=== PATIENT | female | born 1960 | race Caucasian/White ===

== ENCOUNTER 2016-12-31 22:17 | Inpatient (IN) | payer SELFPAY ==
--- NOTE | 2016-12-31 22:33 | DR.GENAD ---
HPI - HPI Comment HPI Comment: SYMTOMS PERSISTENT AND GETTING WORSE. NOT HOLDING DOWN FLUID. NO FEVER. PATIENT DRINK ON A DAILY BASIS. HAVE BEING DRINKING TODAY. HISTORY PANCREATITIS. - Complaint/Symptoms Chief Complaint Doctors Comments: ABDOMINAL PAIN, NAUSEA AND VOMITING THAT STARTED SEVERAL HOURS AGO IN THE AFTERNOON. - Nurses notes reviewed Nurses Notes Review: Yes - Source History Provided: Patient - Mode of Arrival Mode of Arrival: Ambulatory - Timing Came on: Suddenly - Duration Duration: Constant Duration: Hours - Severity Severity: Moderate ROS - Review of Systems Constitutional: Weakness, Fatigue, Loss of Appetite. negative: Chills, Fever Eyes: No Symptoms Reported. negative: Eye Pain, Discharge ENTM: No Symptoms Reported Respiratoy: No Symptoms Reported, Non-Productive Cough, Short of Breath. negative: Productive Cough, Wheezing, Hemoptysis Cardiovascular: No Symptoms Reported Gastrointestinal/Abdominal: Abdominal Pain, Nausea, Vomiting Genitourinary: No Symptoms Reported. negative: Dysuria, Frequency, Hematuria Neurological: Headache, Weakness, Dizziness Musculoskeletal: Muscle Pain Integumentary: No Symptoms Reported, Dryness. negative: Juandice Hematologic/Lymphatic: Easy Bleeding, Easy Bruising Endocrine: No Symptoms Reported All Other Systems: Reviewed and Negative PE - Vital Signs Vitals: Temperature 98.6 F Pulse Rate [Brachial] 103 Pulse Rate 106 Respiratory Rate 18 Blood Pressure [Right Arm] 201/105 Blood Pressure 201/106 O2 Sat by Pulse Oximetry 98 - General Limitations: No Limitations General Appearance: Alert - Head Head Exam: Normal Inspection - Eyes Eye exam: Normal Appearance, PERRL, EOMI. negative: Scleral Icterus, Conjunctival Injection - ENT ENT Exam: Normal External Ear Exam External Ear Exam: Normal External Inspection TM/Canal Exam: Bilateral Normal Nose Exam: Normal Nose Exam Mouth Exam: Normal Inspection Throat Exam: Normal Inspection - Neck Neck Exam: Normal Inspection, Trachea Midline - Chest Chest Inspection: Symmetric Chest Wall Rise - Respiratory Respiratory Exam: Normal Lung Sounds Bilat Respiratory Exam: Bilateral Clear to Auscultation - Cardiovascular Cardiovascular Exam: Regular Rate, Normal Rhythm, Normal Heart Sounds - Abdominal Exam Abdominal Exam: Normal Bowel Sounds, Soft, Tenderness Abdominal Tenderness: Diffuse, Moderate - Extremities Extremities Exam: Normal Inspection - Back Back Exam: Normal Inspection - Neurologic Neurological Exam: Alert, Oriented X3 - Psychiatric Psychiatric Exam: Anxious - Skin Skin Exam: Dry MDM - Additional Information Additional Information Obtained From: Family - Differential Diagnosis Differential Diagnosis: ABDOMINAL PAIN, GASTRITIS, PANCREATITIS, BOWEL OBSTRUCTION Course - Treatment Treatment: SEE ORDERS - Consultation Consultation Comments: DISCUSS PATIENT WITH DR. COVARRUBIAS. HE WILL ADMIT PATIENT. - Education/Counseling Education/Counseling: Patient, Education Educated On: Diagnosis, Needs for Follow Up ROR - Labs Reviewed Laboratory Results Reviewed?: Yes Result Diagrams: 12/31/16 22:52 12/31/16 22:52 Laboratory: WBC 7.9 X10^3/uL (3.6-10.0) 12/31/16 22:52 RBC 3.77 X10^6/uL (3.5-5.4) 12/31/16 22:52 Hgb 13.3 g/dL (12.0-16.0) 12/31/16 22:52 Hct 36.5 % (36.0-47.0) 12/31/16 22:52 MCV 97.0 fL (80.0-100.0) 12/31/16 22:52 MCH 35.3 pg (27.0-34.0) H 12/31/16 22:52 MCHC 36.4 g/dL (33.0-35.0) H 12/31/16 22:52 RDW 12.9 % (11.6-16.5) 12/31/16 22:52 Plt Count 401 X10^3/uL (150.0-450.0) 12/31/16 22:52 MPV 7.2 fL (7.4-11.0) L 12/31/16 22:52 Neut % 73.4 % (42.0-75.0) 12/31/16 22:52 Lymph % 17.3 % (21.0-51.0) L 12/31/16 22:52 [place] % 6.5 % (0.0-13.0) 12/31/16 22:52 Eos % 1.4 % (0.9-2.9) 12/31/16 22:52 Baso % 1.4 % (0.2-1.0) H 12/31/16 22:52 Neut # 5.8 x10^3/uL (2.2-4.8) H 12/31/16 22:52 Lymph # 1.4 X10^3/uL (1.3-2.9) 12/31/16 22:52 [place] # 0.5 x10^3/uL (0.3-0.8) 12/31/16 22:52 Eos # 0.1 x10^3/uL (0.0-0.2) 12/31/16 22:52 Baso # 0.1 X10^3/uL (0.0-0.1) 12/31/16 22:52 Absolute Nucleated RBC 0.0 /100WBC 12/31/16 22:52 Sodium 121 mmol/L (136-145) L* 12/31/16 22:52 Corrected Sodium TNP 12/31/16 22:52 Potassium 3.8 mmol/L (3.5-5.1) 12/31/16 22:52 Chloride 89 mmol/L (98-107) L 12/31/16 22:52 Carbon Dioxide 21.5 mmol/L (21-32) 12/31/16 22:52 BUN 4 mg/dL (7-18) L 12/31/16 22:52 Creatinine 0.66 mg/dL (0.55-1.02) 12/31/16 22:52 Est GFR (MDRD) Af Amer > 60 (>60) 12/31/16 22:52 Est GFR (MDRD) Non-Af > 60 (>60) 12/31/16 22:52 Glucose 107 mg/dL (65-99) H 12/31/16 22:52 Calcium 8.8 mg/dL (8.5-10.1) 12/31/16 22:52 Corrected Calcium TNP 12/31/16 22:52 Total Bilirubin 0.30 mg/dL (0.2-1.0) 12/31/16 22:52 AST 25 Units/L (15-37) 12/31/16 22:52 ALT 19 Units/L (12-78) 12/31/16 22:52 Alkaline Phosphatase 62 Units/L (46-116) 12/31/16 22:52 Total Protein 8.5 g/dL (6.4-8.2) H 12/31/16 22:52 Albumin 4.1 g/dL (3.4-5.0) 12/31/16 22:52 Globulin 4.4 g/dL (2.5-4.5) 12/31/16 22:52 Albumin/Globulin Ratio 0.9 Ratio (1.1-2.1) L 12/31/16 22:52 Amylase 2445 Units/L (25-115) H 12/31/16 22:52 Lipase 41434 Units/L (73-393) H 12/31/16 22:52 Specimen Type Clean catch urine 12/31/16 22:43 Urine Color Pale yellow (YELLOW) 12/31/16 22:43 Urine Appearance Clear (CLEAR) 12/31/16 22:43 Urine pH 5.0 (5.0 - 8.0) 12/31/16 22:43 Ur Specific [place] 1.005 (1.000-1.030) 12/31/16 22:43 Urine Protein 2+ (NEGATIVE) 12/31/16 22:43 Urine Glucose (UA) Negative (NEGATIVE) 12/31/16 22:43 Urine Ketones Negative (NEGATIVE) 12/31/16 22:43 Urine Occult Blood 1+ (NEGATIVE) 12/31/16 22:43 Urine Nitrite Negative (NEGATIVE) 12/31/16 22:43 Urine Bilirubin Negative (NEGATIVE) 12/31/16 22:43 Urine Urobilinogen Normal (NORMAL) 12/31/16 22:43 Ur Leukocyte Esterase Negative (NEGATIVE) 12/31/16 22:43 Urine RBC 0-3 /HPF (NEGATIVE) 12/31/16 22:43 Urine WBC 0-3 /HPF (NEGATIVE) 12/31/16 22:43 Ur Squamous Epith Cells Rare /HPF (NEGATIVE) 12/31/16 22:43 Urine Bacteria Negative /HPF (NEGATIVE) 12/31/16 22:43 Ur Culture Indicated? No/not indicated 12/31/16 22:43 Ethyl Alcohol mg/dL 175 mg/dL (0-19.9) H 12/31/16 22:52 - XRAY XRAY Interpreted by: Radiologist XRAY Findings: REPORT DISCUSS WITH PATIENT. - Diagnosis Discharge Problem: Hyponatremia Abdominal pain Qualifiers: Abdominal location: generalized Qualified Code(s): R10.84 - Generalized abdominal pain Nausea & vomiting Qualifiers: Vomiting type: bilious vomiting Qualified Code(s): R11.14 - Bilious vomiting Acute pancreatitis Qualifiers: Pancreatitis type: alcohol induced Acute pancreatitis complication: unspecified Qualified Code(s): K85.20 - Alcohol induced acute pancreatitis without necrosis or infection - Discharge Plan Disposition: 09 ADMITTED INPATIENT Condition: Stable - Follow ups/Referrals Follow ups/Referrals: NFD,None [Primary Care Provider] - 3 days - Instructions
[2016-12-31 22:36] VITALS: BMI 24.1
[2016-12-31] MEDS ORDERED: ZOFRAN INJ 4 MG VIAL IVP ONE (22:45)
[2016-12-31] MEDS ORDERED: NS 1000 ML 1,000 ML IV ONE (22:45)
[2016-12-31] MEDS ORDERED: THIAMINE HCL INJ IM ONE (22:46)
[2016-12-31] MEDS ORDERED: NS 1000 ML 1,000 ML ONE (22:52)
[2016-12-31] MEDS ORDERED: ZOFRAN INJ 4 MG VIAL ONE (22:52)
[2016-12-31 23:11] LABS: BILIRUBIN,URINE NEGATIVE (NEGATIVE); BLOOD/HEMOGLOBIN,URINE 1+ (NEGATIVE); GLUCOSE, URINE NEGATIVE (NEGATIVE); KETONES,URINE NEGATIVE (NEGATIVE); LEUKOCYTE ESTERASE ,URINE NEGATIVE (NEGATIVE); NITRITES,URINE NEGATIVE (NEGATIVE); PROTEIN,URINE 2+ (NEGATIVE); UROBILINOGEN,URINE NORMAL (NORMAL)
[2016-12-31] MEDS ORDERED: THIAMINE HCL INJ ONE (23:19)
[2016-12-31 23:20] LABS: BLOOD UREA NITROGEN 4 mg/dL (7-18); CALCIUM 8.8 mg/dL (8.5-10.1); CARBON DIOXIDE 21.5 mmol/L (21-32); CHLORIDE 89 mmol/L (98-107); CREATININE 0.66 mg/dL (0.55-1.02); eGFR BLACK RACES > 60 (>60); eGFR NON BLACK RACES > 60 (>60)
[2016-12-31 23:22] LABS: APPEARANCE,URINE CLEAR (CLEAR); BACTERIA,URINE NEGATIVE /HPF (NEGATIVE); COLOR,URINE PALE YELLOW (YELLOW); RBC,URINE 0-3 /HPF (NEGATIVE); SQUAMOUS EPITHELIAL CELL,UR RARE /HPF (NEGATIVE)
[2016-12-31 23:26] LABS: ALANINE AMINOTRANSFERASE 19 Units/L (12-78); ALBUMIN 4.1 g/dL (3.4-5.0); ALKALINE PHOSPHATASE 62 Units/L (46-116); ASPARTATE AMINO TRANSFERASE 25 Units/L (15-37); BLOOD ALCOHOL 175 mg/dL (0-19.9); TOTAL PROTEIN 8.5 g/dL (6.4-8.2)
[2016-12-31 23:40] LABS: BASOPHILS # (AUTO) 0.1 X10^3/uL (0.0-0.1); BASOPHILS % (AUTO) 1.4 % (0.2-1.0); EOSINOPHILS # (AUTO) 0.1 x10^3/uL (0.0-0.2); EOSINOPHILS % (AUTO) 1.4 % (0.9-2.9); HEMATOCRIT 36.5 % (36.0-47.0); HEMOGLOBIN 13.3 g/dL (12.0-16.0); LYMPHOCYTES # (AUTO) 1.4 X10^3/uL (1.3-2.9); LYMPHOCYTES % (AUTO) 17.3 % (21.0-51.0); MEAN CORPUSCULAR HEMOGLOBIN 35.3 pg (27.0-34.0); MEAN CORPUSCULAR HGB CONC 36.4 g/dL (33.0-35.0); MEAN PLATELET VOLUME 7.2 fL (7.4-11.0); MONOCYTES # (AUTO) 0.5 x10^3/uL (0.3-0.8); MONOCYTES % (AUTO) 6.5 % (0.0-13.0); NEUTROPHILS # (AUTO) 5.8 x10^3/uL (2.2-4.8); NEUTROPHILS % (AUTO) 73.4 % (42.0-75.0); PLATELET COUNT 401 X10^3/uL (150.0-450.0); RED BLOOD COUNT 3.77 X10^6/uL (3.5-5.4); RED CELL DISTRIBUTION WIDTH 12.9 % (11.6-16.5); WHITE BLOOD COUNT 7.9 X10^3/uL (3.6-10.0)
[2016-12-31 23:58] LABS: AMYLASE 2445 Units/L (25-115); LIPASE 40684 Units/L (73-393)
[2016-12-31 23:59] LABS: SODIUM 121 mmol/L (136-145)
[2017-01-01] MEDS ORDERED: TORADOL 30 MG VIAL ONE (00:42)
[2017-01-01] MEDS ORDERED: PEPCID 20 MG IV PREMIX* 20 MG/50 ML BAG IV ONE ×2 (00:42→00:45)
[2017-01-01] MEDS ORDERED: TORADOL 30 MG VIAL IVP ONE (00:45)
--- NOTE | 2017-01-01 01:18 | CT ---
EXAM: CT ABDOMEN AND PELVIS WITHOUT CONTRAST INDICATION: Abdominal and back pain COMPARISION: No priors available for comparison TECHNIQUE: Axial CT examination of the abdomen and pelvis was performed without intravenous contrast. Coronal an d sagittal reconstructions were created using the axial data. FINDINGS: The lung bases are clear. There is inflammation within the pancreas and in the surrounding peripancre atic soft tissues. The liver, spleen, adrenal glands, kidneys, and gallbladder are normal. There is n o evidence of biliary ductal dilatation. The aorta and inferior vena cava are normal in caliber. The bowel loops are nonobstructed. No abnormal mass, lymphadenopathy, or fluid collection. Urinary bladder is normal. The appendix is normal. There is colonic diverticulosis. The uterus and a dnexa appear unremarkable. The regional skeleton is intact. IMPRESSION: Findings are consistent with acute pancreatitis. Reported By:
[2017-01-01] MEDS ORDERED: PHENERGAN INJ 25 MG IV ONE (01:48)
[2017-01-01] MEDS ORDERED: DEMEROL INJ IVP ONE (01:48)
[2017-01-01] MEDS ORDERED: PHENERGAN INJ 25 MG ONE (01:52)
[2017-01-01] MEDS ORDERED: DEMEROL INJ ONE (01:52)
[2017-01-01] MEDS: NS 1000 ML 1,000 ML IV SCH ×3 (03:02→22:30)
[2017-01-01] MEDS: DEMEROL INJ IVP PRN ×5 (06:24→22:26)
[2017-01-01 06:39] LABS: BASOPHILS % (AUTO) 0.2 % (0.2-1.0); EOSINOPHILS % (AUTO) 0.3 % (0.9-2.9); HEMATOCRIT 35.8 % (36.0-47.0); LYMPHOCYTES # (AUTO) 0.6 X10^3/uL (1.3-2.9); LYMPHOCYTES % (AUTO) 5.9 % (21.0-51.0); MEAN CORPUSCULAR HEMOGLOBIN 34.5 pg (27.0-34.0); MEAN CORPUSCULAR HGB CONC 36.2 g/dL (33.0-35.0); MEAN CORPUSCULAR VOLUME 95.2 fL (80.0-100.0); MEAN PLATELET VOLUME 7.2 fL (7.4-11.0); MONOCYTES # (AUTO) 0.6 x10^3/uL (0.3-0.8); MONOCYTES % (AUTO) 5.7 % (0.0-13.0); NEUTROPHILS # (AUTO) 9.6 x10^3/uL (2.2-4.8); NEUTROPHILS % (AUTO) 87.9 % (42.0-75.0); PLATELET COUNT 389 X10^3/uL (150.0-450.0); RED BLOOD COUNT 3.76 X10^6/uL (3.5-5.4); WHITE BLOOD COUNT 10.9 X10^3/uL (3.6-10.0)
[2017-01-01 06:54] LABS: ALANINE AMINOTRANSFERASE 17 Units/L (12-78); ALBUMIN 3.8 g/dL (3.4-5.0); ALKALINE PHOSPHATASE 53 Units/L (46-116); ASPARTATE AMINO TRANSFERASE 25 Units/L (15-37); BLOOD UREA NITROGEN 4 mg/dL (7-18); CALCIUM 8.8 mg/dL (8.5-10.1); CARBON DIOXIDE 18.4 mmol/L (21-32); CHLORIDE 97 mmol/L (98-107); SODIUM 129 mmol/L (136-145); TOTAL PROTEIN 7.8 g/dL (6.4-8.2); eGFR BLACK RACES > 60 (>60); eGFR NON BLACK RACES > 60 (>60)
[2017-01-01 07:03] LABS: AMYLASE 1021 Units/L (25-115)
[2017-01-01 08:05] LABS: LIPASE 9116 Units/L (73-393)
[2017-01-01] MEDS: PHENERGAN INJ 25 MG IVP PRN ×2 (10:23→18:12)
[2017-01-01] MEDS: ZOFRAN INJ 4 MG VIAL IVP PRN ×2 (14:14→22:27)
[2017-01-01] MEDS: NICOTINE PATCH TD SCH (20:46)
[2017-01-02] MEDS: DEMEROL INJ IVP PRN ×5 (03:38→20:43)
[2017-01-02] MEDS: PHENERGAN INJ 25 MG IVP PRN ×3 (03:38→20:42)
[2017-01-02 06:44] LABS: BASOPHILS % (AUTO) 0.8 % (0.2-1.0); EOSINOPHILS # (AUTO) 0.2 x10^3/uL (0.0-0.2); EOSINOPHILS % (AUTO) 3.5 % (0.9-2.9); HEMATOCRIT 32.2 % (36.0-47.0); HEMOGLOBIN 11.4 g/dL (12.0-16.0); LYMPHOCYTES # (AUTO) 0.9 X10^3/uL (1.3-2.9); LYMPHOCYTES % (AUTO) 14.1 % (21.0-51.0); MEAN CORPUSCULAR HEMOGLOBIN 34.9 pg (27.0-34.0); MEAN CORPUSCULAR HGB CONC 35.6 g/dL (33.0-35.0); MEAN PLATELET VOLUME 7.4 fL (7.4-11.0); MONOCYTES # (AUTO) 0.4 x10^3/uL (0.3-0.8); MONOCYTES % (AUTO) 6.2 % (0.0-13.0); NEUTROPHILS # (AUTO) 4.7 x10^3/uL (2.2-4.8); NEUTROPHILS % (AUTO) 75.4 % (42.0-75.0); PLATELET COUNT 313 X10^3/uL (150.0-450.0); RED BLOOD COUNT 3.28 X10^6/uL (3.5-5.4); RED CELL DISTRIBUTION WIDTH 13.1 % (11.6-16.5); WHITE BLOOD COUNT 6.3 X10^3/uL (3.6-10.0)
[2017-01-02 06:47] LABS: BLOOD UREA NITROGEN 5 mg/dL (7-18); CALCIUM 8.6 mg/dL (8.5-10.1); CARBON DIOXIDE 24.5 mmol/L (21-32); CHLORIDE 101 mmol/L (98-107); CREATININE 0.58 mg/dL (0.55-1.02); SODIUM 133 mmol/L (136-145); eGFR BLACK RACES > 60 (>60); eGFR NON BLACK RACES > 60 (>60)
[2017-01-02] MEDS: ZOFRAN INJ 4 MG VIAL IVP PRN ×2 (08:17→16:45)
[2017-01-02] MEDS: NS 1000 ML 1,000 ML IV SCH ×2 (08:24→18:13)
[2017-01-02] MEDS: NICOTINE PATCH TD SCH (08:25)
[2017-01-02] MEDS: TYLENOL 325 MG TAB PO PRN ×2 (08:39→18:13)
[2017-01-02] MEDS: PROVENTIL NEB TX 0.083% 2.5MG/ 3ML NEB SCH ×3 (09:45→20:47)
[2017-01-02 14:00] LABS: ALANINE AMINOTRANSFERASE 15 Units/L (12-78); ALBUMIN 2.9 g/dL (3.4-5.0); ALKALINE PHOSPHATASE 41 Units/L (46-116); AMYLASE 298 Units/L (25-115); ASPARTATE AMINO TRANSFERASE 22 Units/L (15-37); COR CA(FOR HYPOALB) 9.5 mg/dL (8.5-10.1); LIPASE 1395 Units/L (73-393); TOTAL PROTEIN 6.5 g/dL (6.4-8.2)
[2017-01-03] MEDS: DEMEROL INJ IVP PRN ×3 (01:38→09:51)
[2017-01-03] MEDS: NS 1000 ML 1,000 ML IV SCH ×4 (03:26→15:14)
[2017-01-03 04:33] LABS: ALANINE AMINOTRANSFERASE 13 Units/L (12-78); ALBUMIN 2.8 g/dL (3.4-5.0); ALKALINE PHOSPHATASE 48 Units/L (46-116); AMYLASE 104 Units/L (25-115); ASPARTATE AMINO TRANSFERASE 16 Units/L (15-37); BLOOD UREA NITROGEN 3 mg/dL (7-18); CALCIUM 8.3 mg/dL (8.5-10.1); CARBON DIOXIDE 22.8 mmol/L (21-32); CHLORIDE 105 mmol/L (98-107); COR CA(FOR HYPOALB) 9.3 mg/dL (8.5-10.1); CREATININE 0.61 mg/dL (0.55-1.02); LIPASE 525 Units/L (73-393); SODIUM 137 mmol/L (136-145); TOTAL PROTEIN 6.2 g/dL (6.4-8.2); eGFR BLACK RACES > 60 (>60); eGFR NON BLACK RACES > 60 (>60)
[2017-01-03 04:40] LABS: BASOPHILS # (AUTO) 0.1 X10^3/uL (0.0-0.1); BASOPHILS % (AUTO) 1.2 % (0.2-1.0); EOSINOPHILS # (AUTO) 0.3 x10^3/uL (0.0-0.2); HEMATOCRIT 29.2 % (36.0-47.0); HEMOGLOBIN 10.2 g/dL (12.0-16.0); LYMPHOCYTES # (AUTO) 1.1 X10^3/uL (1.3-2.9); LYMPHOCYTES % (AUTO) 15.5 % (21.0-51.0); MEAN CORPUSCULAR HEMOGLOBIN 34.7 pg (27.0-34.0); MEAN CORPUSCULAR HGB CONC 34.8 g/dL (33.0-35.0); MEAN CORPUSCULAR VOLUME 99.7 fL (80.0-100.0); MEAN PLATELET VOLUME 7.5 fL (7.4-11.0); MONOCYTES # (AUTO) 0.4 x10^3/uL (0.3-0.8); MONOCYTES % (AUTO) 5.5 % (0.0-13.0); NEUTROPHILS % (AUTO) 73.8 % (42.0-75.0); PLATELET COUNT 290 X10^3/uL (150.0-450.0); RED BLOOD COUNT 2.93 X10^6/uL (3.5-5.4); RED CELL DISTRIBUTION WIDTH 12.7 % (11.6-16.5); WHITE BLOOD COUNT 6.8 X10^3/uL (3.6-10.0)
[2017-01-03] MEDS ORDERED: K-RIDER 10 MEQ/NS 100 ML 10 MEQ/100 ML BAG IV PRN (04:59)
[2017-01-03] MEDS ORDERED: K-LYTE EFFERVESCENT PO PRN (04:59)
[2017-01-03] MEDS ORDERED: K-DUR TAB 20 MEQ PO PRN (04:59)
[2017-01-03] MEDS ORDERED: POTASSIUM CHLORIDE LIQ 20 MEQ UDC PO PRN (04:59)
[2017-01-03] MEDS: PROVENTIL NEB TX 0.083% 2.5MG/ 3ML NEB SCH ×3 (05:02→20:06)
[2017-01-03] MEDS: PHENERGAN INJ 25 MG IVP PRN ×3 (05:44→21:16)
[2017-01-03] MEDS: NICOTINE PATCH TD SCH (08:35)
[2017-01-03] MEDS ORDERED: LEVSIN/MAALOX/LIDOC VISC PO PRN (12:36)
[2017-01-03] MEDS ORDERED: DEMEROL INJ IVP PRN (12:38)
--- NOTE | 2017-01-03 12:41 | PCM.PROG ---
Progress Note - Progress Note for Day of Date: 01/03/17 - Subjective Subjective: 56 BF ADMITTED ON 01/01/2017 FOR ABD PAIN AND ACUTE PACREATITIS. PT HAS IMPROVING ABDOMINAL PAIN WITH NAUSEA, NO VOMITING. PT ON CLEAR LIQUID PLAN TO ADVANCE DIET TO FULL LIQUID. WILL REPEAT AM LABS - Past Medical Family Social History Past Med/Fam/Surg Hx: No changes since H&P Allergies: Allergies morphine Allergy (Verified 12/31/16 22:42) Sulfa (Sulfonamide Antibiotics) [SULFA] Allergy (Verified 12/31/16 22:42) - Review of Systems ROS: No change since H&P - Vital Signs and I&O's Vital Signs: Temperature 97.8 F Pulse Rate [Brachial] 86 Pulse Rate 78 Respiratory Rate 20 Blood Pressure [Right Arm] 146/69 Blood Pressure 191/85 O2 Sat by Pulse Oximetry 99 Intake and Output: Intake & Output 01/01/17 01/02/17 01/03/17 01/04/17 11:59 11:59 11:59 11:59 Intake Total 255 2643 2976 Balance 255 2643 2976 - Physical Exam Oriented: Normal Eyes: Normal Ear: Normal Nose: Normal Throat: Normal Respiratory: Normal Cardiovascular: Normal : Normal Auscultation: Bowel Sounds: Normal Tenderness: RUQ, LUQ, Epigastric Skin: Normal Musculoskeletal: Normal Psychiatric: Normal Speech Pattern: Clear, Appropriate - Laboratory and Diagnostics Result Diagrams: 01/03/17 03:05 01/03/17 03:05 Labs: Laboratory WBC 6.8 X10^3/uL (3.6-10.0) 01/03/17 03:05 RBC 2.93 X10^6/uL (3.5-5.4) L 01/03/17 03:05 Hgb 10.2 g/dL (12.0-16.0) L 01/03/17 03:05 Hct 29.2 % (36.0-47.0) L 01/03/17 03:05 MCV 99.7 fL (80.0-100.0) 01/03/17 03:05 MCH 34.7 pg (27.0-34.0) H 01/03/17 03:05 MCHC 34.8 g/dL (33.0-35.0) 01/03/17 03:05 RDW 12.7 % (11.6-16.5) 01/03/17 03:05 Plt Count 290 X10^3/uL (150.0-450.0) 01/03/17 03:05 MPV 7.5 fL (7.4-11.0) 01/03/17 03:05 Neut % 73.8 % (42.0-75.0) 01/03/17 03:05 Lymph % 15.5 % (21.0-51.0) L 01/03/17 03:05 [place] % 5.5 % (0.0-13.0) 01/03/17 03:05 Eos % 4.0 % (0.9-2.9) H 01/03/17 03:05 Baso % 1.2 % (0.2-1.0) H 01/03/17 03:05 Neut # 5.0 x10^3/uL (2.2-4.8) H 01/03/17 03:05 Lymph # 1.1 X10^3/uL (1.3-2.9) L 01/03/17 03:05 [place] # 0.4 x10^3/uL (0.3-0.8) 01/03/17 03:05 Eos # 0.3 x10^3/uL (0.0-0.2) H 01/03/17 03:05 Baso # 0.1 X10^3/uL (0.0-0.1) 01/03/17 03:05 Absolute Nucleated RBC 0.1 /100WBC 01/03/17 03:05 Sodium 137 mmol/L (136-145) 01/03/17 03:05 Corrected Sodium TNP 01/03/17 03:05 Potassium 3.4 mmol/L (3.5-5.1) L 01/03/17 03:05 Chloride 105 mmol/L (98-107) 01/03/17 03:05 Carbon Dioxide 22.8 mmol/L (21-32) 01/03/17 03:05 BUN 3 mg/dL (7-18) L 01/03/17 03:05 Creatinine 0.61 mg/dL (0.55-1.02) 01/03/17 03:05 Est GFR (MDRD) Af Amer > 60 (>60) 01/03/17 03:05 Est GFR (MDRD) Non-Af > 60 (>60) 01/03/17 03:05 Glucose 94 mg/dL (65-99) 01/03/17 03:05 Calcium 8.3 mg/dL (8.5-10.1) L 01/03/17 03:05 Corrected Calcium 9.3 mg/dL (8.5-10.1) 01/03/17 03:05 Total Bilirubin 0.20 mg/dL (0.2-1.0) 01/03/17 03:05 AST 16 Units/L (15-37) 01/03/17 03:05 ALT 13 Units/L (12-78) 01/03/17 03:05 Alkaline Phosphatase 48 Units/L (46-116) 01/03/17 03:05 Total Protein 6.2 g/dL (6.4-8.2) L 01/03/17 03:05 Albumin 2.8 g/dL (3.4-5.0) L 01/03/17 03:05 Globulin 3.4 g/dL (2.5-4.5) 01/03/17 03:05 Albumin/Globulin Ratio 0.8 Ratio (1.1-2.1) L 01/03/17 03:05 Amylase 104 Units/L (25-115) 01/03/17 03:05 Lipase 525 Units/L (73-393) H 01/03/17 03:05 Specimen Type Clean catch urine 12/31/16 22:43 Urine Color Pale yellow (YELLOW) 12/31/16 22:43 Urine Appearance Clear (CLEAR) 12/31/16 22:43 Urine pH 5.0 (5.0 - 8.0) 12/31/16 22:43 Ur Specific [place] 1.005 (1.000-1.030) 12/31/16 22:43 Urine Protein 2+ (NEGATIVE) 12/31/16 22:43 Urine Glucose (UA) Negative (NEGATIVE) 12/31/16 22:43 Urine Ketones Negative (NEGATIVE) 12/31/16 22:43 Urine Occult Blood 1+ (NEGATIVE) 12/31/16 22:43 Urine Nitrite Negative (NEGATIVE) 12/31/16 22:43 Urine Bilirubin Negative (NEGATIVE) 12/31/16 22:43 Urine Urobilinogen Normal (NORMAL) 12/31/16 22:43 Ur Leukocyte Esterase Negative (NEGATIVE) 12/31/16 22:43 Urine RBC 0-3 /HPF (NEGATIVE) 12/31/16 22:43 Urine WBC 0-3 /HPF (NEGATIVE) 12/31/16 22:43 Ur Squamous Epith Cells Rare /HPF (NEGATIVE) 12/31/16 22:43 Urine Bacteria Negative /HPF (NEGATIVE) 12/31/16 22:43 Ur Culture Indicated? No/not indicated 12/31/16 22:43 Ethyl Alcohol mg/dL 175 mg/dL (0-19.9) H 12/31/16 22:52 - Plan (1) Acute pancreatitis Status: Acute Qualifiers: Pancreatitis type: alcohol induced Acute pancreatitis complication: unspecified Qualified Code(s): K85.20 - Alcohol induced acute pancreatitis without necrosis or infection Plan: CONTINUE WITH IV HYDRATION, PAIN AND NAUSEA CONTROL. REPEAT AM LABS, ADD GI COCKTAIL. ADVANCE DIET TOLERATED (2) Nausea & vomiting Status: Acute Qualifiers: Vomiting type: bilious vomiting Qualified Code(s): R11.14 - Bilious vomiting
[2017-01-03] MEDS: PERCOCET TAB 5/325 MG PO PRN ×2 (14:28→21:17)
[2017-01-04] MEDS: NS 1000 ML 1,000 ML IV SCH (00:34)
[2017-01-04] MEDS: PERCOCET TAB 5/325 MG PO PRN (03:23)
[2017-01-04] MEDS: PHENERGAN INJ 25 MG IVP PRN ×2 (03:23→09:24)
[2017-01-04 04:20] VITALS: BP 184/90
[2017-01-04] MEDS: PROVENTIL NEB TX 0.083% 2.5MG/ 3ML NEB SCH (05:05)
[2017-01-04 05:07] LABS: BASOPHILS # (AUTO) 0.1 X10^3/uL (0.0-0.1); BASOPHILS % (AUTO) 1.3 % (0.2-1.0); EOSINOPHILS # (AUTO) 0.4 x10^3/uL (0.0-0.2); EOSINOPHILS % (AUTO) 7.1 % (0.9-2.9); HEMATOCRIT 28.5 % (36.0-47.0); HEMOGLOBIN 9.9 g/dL (12.0-16.0); LYMPHOCYTES # (AUTO) 1.7 X10^3/uL (1.3-2.9); LYMPHOCYTES % (AUTO) 30.8 % (21.0-51.0); MEAN CORPUSCULAR HEMOGLOBIN 34.6 pg (27.0-34.0); MEAN CORPUSCULAR HGB CONC 34.6 g/dL (33.0-35.0); MEAN CORPUSCULAR VOLUME 99.8 fL (80.0-100.0); MEAN PLATELET VOLUME 7.8 fL (7.4-11.0); MONOCYTES # (AUTO) 0.4 x10^3/uL (0.3-0.8); MONOCYTES % (AUTO) 7.1 % (0.0-13.0); NEUTROPHILS # (AUTO) 2.9 x10^3/uL (2.2-4.8); NEUTROPHILS % (AUTO) 53.7 % (42.0-75.0); PLATELET COUNT 294 X10^3/uL (150.0-450.0); RED BLOOD COUNT 2.86 X10^6/uL (3.5-5.4); RED CELL DISTRIBUTION WIDTH 12.7 % (11.6-16.5); WHITE BLOOD COUNT 5.4 X10^3/uL (3.6-10.0)
[2017-01-04 05:26] LABS: ALANINE AMINOTRANSFERASE 15 Units/L (12-78); ALBUMIN 2.8 g/dL (3.4-5.0); ALKALINE PHOSPHATASE 49 Units/L (46-116); AMYLASE 56 Units/L (25-115); ASPARTATE AMINO TRANSFERASE 15 Units/L (15-37); BLOOD UREA NITROGEN 2 mg/dL (7-18); CALCIUM 8.5 mg/dL (8.5-10.1); CARBON DIOXIDE 22.6 mmol/L (21-32); CHLORIDE 107 mmol/L (98-107); COR CA(FOR HYPOALB) 9.5 mg/dL (8.5-10.1); LIPASE 296 Units/L (73-393); SODIUM 140 mmol/L (136-145); TOTAL PROTEIN 6.2 g/dL (6.4-8.2); eGFR BLACK RACES > 60 (>60); eGFR NON BLACK RACES > 60 (>60)
[2017-01-04] MEDS ORDERED: CATAPRES TAB 0.1 MG PO NR (09:10)
[2017-01-04] MEDS: NICOTINE PATCH TD SCH (09:21)
[2017-01-04] MEDS ORDERED: CHECK PATCH XX SCH (21:00)
[2017-01-05] MEDS ORDERED: NICOTINE PATCH TD SCH (09:00)
== END 2017-01-04 10:45 | disposition home or self-care (01) | DRG 440 ==
LOC: ER 22:26 → ICU 01-01 02:41 → MED/SURG 01-02 14:15
PROVIDERS: ADMIT Internal Medicine; ATTEND Internal Medicine
DX: K85.20 Alcohol induced acute pancreatitis without necrosis or infection (principal); R10.84 Generalized abdominal pain; E87.6 Hypokalemia; R11.14 Bilious vomiting; F10.10 Alcohol abuse, uncomplicated
CPT/HCPCS: 36415; 74176; 80053; 80320; 81001; 82150; 83690; 85025; 94640; 96365; 96372; 96374; 96375; 99284; A4216; A4222; S0028; G6040; J1885; J2175; J2405; J2550; J3411; J7613

== ENCOUNTER 2017-09-25 08:55 | Inpatient (IN) ==
[2017-09-25] MEDS ORDERED: NS 1000 ML 1,000 ML IV ONE (09:19)
--- NOTE | 2017-09-25 09:20 | ED.ABDFE ---
HPI - Time seen Time seen: 09:00 - PCP Primary Care Physician: ronan - HPI Comment HPI Comment: HISTORY PACREATITIS. PAIN WORSE TODAY. NAUSEATED. NOT EATING FOOD WORSEN PAIN. NO FEVER OR DYSURIA. - Complaint Chief Complaint Doctors Comments: PROGRESSIVE INTERMITTENT ABDOMINAL PAIN TIMES 3 WEEKS. Chief Complaint:: pt stated couple of months ago she was in our hospital for pancreatitis, she stated she has been hurting in her stomah with the same sx for 3 weeks - Nurses notes reviewed Nurses Notes Review: Yes - Source History Provided: Patient - Mode of arrival Mode of Arrival: Ambulatory - Timing Onset of Chief Complaint: 09/04/17 Came on: Gradually - Duration Duration: Days - Location Location: Diffuse - Severity Severity: Moderate - Quality Quality: Sharp - Context Onset: Gradually History of: Similar pain (dx) - Modifying Worsening Factors: Food Improving Factors: Nothing - Associated signs and symptoms Associated Signs and Symptoms: Nausea PMH - PMH Past Medical History: Yes Past Medical History: Asthma Past Surgical History: Yes Surgical History: Cholecystectomy - Family History History of Family Medical Conditions: Yes Family Medical History: Diabetes Mellitus, Cancer - Social History Does patient currently use any type of tobacco product: Yes Have you used tobacco products in the last 12 months: Yes Type of Tobacco Use: Cigarettes How many years tobacco product used: 40 Does any household member use tobacco: No Alcohol Use: Occasionally Do you use any recreational Drugs:: No Lives With: Family Lives Where: Home - infectious screening In the last 2 months have you had wt loss of >10#?: NO Have you had fever, night sweats or hemotysis?: No Have you traveled outside the country in the last 6 months?: No Isolation: Standard ROS - Review of Systems Constitutional: Weakness, Fatigue. negative: Chills Eyes: No Symptoms Reported ENTM: No Symptoms Reported Respiratoy: No Symptoms Reported Cardiovascular: No Symptoms Reported Gastrointestinal/Abdominal: Abdominal Pain, Nausea Genitourinary: No Symptoms Reported Neurological: No Symptoms Reported Musculoskeletal: No Symptoms Reported Integumentary: No Symptoms Reported Hematologic/Lymphatic: No Symptoms Reported Endocrine: No Symptoms Reported All Other Systems: Reviewed and Negative PE - General Limitations: No Limitations General Appearance: Alert - Head Head Exam: Normal Inspection - Eyes Eye exam: Normal Appearance - ENT ENT Exam: Normal External Ear Exam - Neck Neck Exam: Trachea Midline - Chest Chest Inspection: Symmetric Chest Wall Rise - Respiratory Respiratory Exam: Normal Lung Sounds Bilat Respiratory Exam: Bilateral Clear to Auscultation - Cardiovascular Cardiovascular Exam: Regular Rate, Normal Rhythm, Normal Heart Sounds - Abdominal Exam Abdominal Exam: Normal Bowel Sounds, Soft, Tenderness Abdominal Tenderness: Diffuse, Moderate - Rectal Rectal Exam: Deferred - Back Back Exam: Normal Inspection - Extremeties Extremities Exam: Normal Inspection - External Exam: Female: Deferred : Speculum Exam (Female): Deferred : Bimanual Exam (female): Deferred - Neurologic Neurological Exam: Alert, Oriented X3 - Psychiatric Psychiatric Exam: Normal Affect, Normal Mood - Skin Skin Exam: Normal Color - Vital Signs Vitals: Temperature 98.9 F Pulse Rate [Left Brachial] 86 Pulse Rate 115 Respiratory Rate 18 Blood Pressure [Right Arm] 183/89 Blood Pressure 176/101 O2 Sat by Pulse Oximetry 98 MDM - Differential Diagnosis Differential Diagnosis- Considerations may include:: Cholcystitis, Cholelethiasis, Constipation, Diverticular disease, Esophagitis, Gastritus/PUD, Pancreatitis, Urinary tract infection, Urolithiasis Course - Treatment Treatment: SEE ORDERS. IN FLUID AND IV PAIN AND NAUSEA MED IN ED. PAIN IMPROVING. - Consultation Consultation Comments: DISCUSS PATIENT WITH DR. COVARRUBIAS. HE WILL ADMIT PATIENT. - Education/Counseling Education/Counseling: Patient, Education Educated On: Diagnosis ROR - Labs Reviewed Laboratory Results Reviewed?: Yes Result Diagrams: 09/25/17 09:10 09/25/17 09:10 - Labs Reviewed Laboratory: WBC 6.7 X10^3/uL (3.6-10.0) 09/25/17 09:10 RBC 4.10 X10^6/uL (3.5-5.4) 09/25/17 09:10 Hgb 13.8 g/dL (12.0-16.0) 09/25/17 09:10 Hct 39.3 % (36.0-47.0) 09/25/17 09:10 MCV 96.0 fL (80.0-100.0) 09/25/17 09:10 MCH 33.8 pg (27.0-34.0) 09/25/17 09:10 MCHC 35.2 g/dL (33.0-35.0) H 09/25/17 09:10 RDW 12.1 % (11.6-16.5) 09/25/17 09:10 Plt Count 388 X10^3/uL (150.0-450.0) 09/25/17 09:10 MPV 8.0 fL (7.4-11.0) 09/25/17 09:10 Neut % (Auto) 71.9 % (42.0-75.0) 09/25/17 09:10 Lymph % (Auto) 14.0 % (21.0-51.0) L 09/25/17 09:10 [place] % (Auto) 8.9 % (0.0-13.0) 09/25/17 09:10 Eos % (Auto) 4.4 % (0.9-2.9) H 09/25/17 09:10 Baso % (Auto) 0.8 % (0.2-1.0) 09/25/17 09:10 Neut # (Auto) 4.8 x10^3/uL (2.2-4.8) 09/25/17 09:10 Lymph # (Auto) 0.9 X10^3/uL (1.3-2.9) L 09/25/17 09:10 [place] # (Auto) 0.6 x10^3/uL (0.3-0.8) 09/25/17 09:10 Eos # (Auto) 0.3 x10^3/uL (0.0-0.2) H 09/25/17 09:10 Baso # (Auto) 0.1 X10^3/uL (0.0-0.1) 09/25/17 09:10 Absolute Nucleated RBC 0.0 /100WBC 09/25/17 09:10 Sodium 134 mmol/L (136-145) L 09/25/17 09:10 Corrected Sodium 135 mmol/L (136-145) L 09/25/17 09:10 Potassium 3.1 mmol/L (3.5-5.1) L 09/25/17 09:10 Chloride 98 mmol/L (98-107) 09/25/17 09:10 Carbon Dioxide 28.4 mmol/L (21-32) 09/25/17 09:10 BUN 4 mg/dL (7-18) L 09/25/17 09:10 Creatinine 0.76 mg/dL (0.55-1.02) 09/25/17 09:10 Est GFR (MDRD) Af Amer > 60 (>60) 09/25/17 09:10 Est GFR (MDRD) Non-Af > 60 (>60) 09/25/17 09:10 Glucose 125 mg/dL (65-99) H 09/25/17 09:10 Calcium 9.3 mg/dL (8.5-10.1) 09/25/17 09:10 Corrected Calcium TNP 09/25/17 09:10 Total Bilirubin 1.40 mg/dL (0.2-1.0) H 09/25/17 09:10 AST 216 Units/L (15-37) H 09/25/17 09:10 ALT 194 Units/L (12-78) H 09/25/17 09:10 Alkaline Phosphatase 253 Units/L (46-116) H 09/25/17 09:10 Total Protein 8.1 g/dL (6.4-8.2) 09/25/17 09:10 Albumin 3.8 g/dL (3.4-5.0) 09/25/17 09:10 Globulin 4.3 g/dL (2.5-4.5) 09/25/17 09:10 Albumin/Globulin Ratio 0.9 Ratio (1.1-2.1) L 09/25/17 09:10 Amylase 471 Units/L (25-115) H 09/25/17 09:10 Lipase 73067 Units/L (73-393) H 09/25/17 09:10 - Diagnosis Discharge Problem: Dehydration Acute pancreatitis Qualifiers: Pancreatitis type: biliary Acute pancreatitis complication: unspecified Qualified Code(s): K85.10 - Biliary acute pancreatitis without necrosis or infection Abdominal pain Qualifiers: Abdominal location: generalized Qualified Code(s): R10.84 - Generalized abdominal pain - Discharge Plan Disposition: ADMITTED INPATIENT
[2017-09-25] MEDS ORDERED: PEPCID 20 MG IV PREMIX* 20 MG/50 ML BAG IV ONE ×2 (09:21→09:24)
[2017-09-25] MEDS ORDERED: DEMEROL INJ IVP ONE (09:21)
[2017-09-25] MEDS ORDERED: NS 1000 ML 1,000 ML ONE (09:22)
[2017-09-25] MEDS ORDERED: DEMEROL INJ ONE (09:25)
[2017-09-25 09:32] LABS: BASOPHILS # (AUTO) 0.1 X10^3/uL (0.0-0.1); BASOPHILS % (AUTO) 0.8 % (0.2-1.0); EOSINOPHILS # (AUTO) 0.3 x10^3/uL (0.0-0.2); EOSINOPHILS % (AUTO) 4.4 % (0.9-2.9); HEMATOCRIT 39.3 % (36.0-47.0); HEMOGLOBIN 13.8 g/dL (12.0-16.0); LYMPHOCYTES # (AUTO) 0.9 X10^3/uL (1.3-2.9); MEAN CORPUSCULAR HEMOGLOBIN 33.8 pg (27.0-34.0); MEAN CORPUSCULAR HGB CONC 35.2 g/dL (33.0-35.0); MONOCYTES # (AUTO) 0.6 x10^3/uL (0.3-0.8); MONOCYTES % (AUTO) 8.9 % (0.0-13.0); NEUTROPHILS # (AUTO) 4.8 x10^3/uL (2.2-4.8); NEUTROPHILS % (AUTO) 71.9 % (42.0-75.0); PLATELET COUNT 388 X10^3/uL (150.0-450.0); RED CELL DISTRIBUTION WIDTH 12.1 % (11.6-16.5); WHITE BLOOD COUNT 6.7 X10^3/uL (3.6-10.0)
[2017-09-25 09:40] LABS: ALANINE AMINOTRANSFERASE 194 Units/L (12-78); ALBUMIN 3.8 g/dL (3.4-5.0); ALKALINE PHOSPHATASE 253 Units/L (46-116); AMYLASE 471 Units/L (25-115); ASPARTATE AMINO TRANSFERASE 216 Units/L (15-37); BLOOD UREA NITROGEN 4 mg/dL (7-18); CALCIUM 9.3 mg/dL (8.5-10.1); CARBON DIOXIDE 28.4 mmol/L (21-32); CHLORIDE 98 mmol/L (98-107); COR NA(FOR HYPERGLY) 135 mmol/L (136-145); CREATININE 0.76 mg/dL (0.55-1.02); SODIUM 134 mmol/L (136-145); TOTAL PROTEIN 8.1 g/dL (6.4-8.2); eGFR NON BLACK RACES > 60 (>60)
[2017-09-25 10:02] LABS: LIPASE 12380 Units/L (73-393)
[2017-09-25] MEDS ORDERED: NS + KCL 20 MEQ/L 1,000 ML IV ONE (10:32)
[2017-09-25] MEDS ORDERED: PEPCID 20 MG IV PREMIX* 20 MG/50 ML BAG IV PRN (10:35)
[2017-09-25] MEDS: NS + KCL 20 MEQ/L 1,000 ML IV SCH ×2 (11:10→19:41)
--- NOTE | 2017-09-25 11:42 | CT ---
HISTORY: Stomach pain, history of pancreatitis Study: CT abdomen and pelvis without contrast Comparison: 01/01/2017 Technique: Multiple axial images of the abdomen and pelvis were obtained without IV contrast. Dose reduction t echniques including Automated Exposure Control (AEC) and adjustment of mA and kV were utilized. Findings: Please note evaluation is limited without use of IV contrast. The visualized lung bases are clear. The unenhanced spleen, kidneys and adrenal glands are unremarka ble. Gallbladder is removed. There is intrahepatic and extrahepatic bile duct dilation/obstruction th at has developed since prior study. There are inflammatory changes seen around the head and uncinate process of the pancreas suggesting acute pancreatitis. There is dilation of the pancreatic duct also noted increased from prior study. Evaluation for complication such as necrosis or venous thrombosis i s limited due to lack of IV contrast. There is reactive inflammation of the retroperitoneal duodenum. No free intraperitoneal air. No evidence of bowel obstruction the visualized portions of the appendix are normal. No free fluid is identified. The soft tissues and osseous structures are unremarkable. Limited evaluation of vascular structures d ue to lack of contrast. No pathologically enlarged lymph nodes are identified. Normal urinary bladder . IMPRESSION: 1. Inflammatory changes around the head and uncinate process of the pancreas compatible with pancreat itis with associated reactive duodenitis. Further evaluation limited by lack of contrast. 2. Interval development of dilation/obstruction of the pancreatic duct and biliary tree. An underlyin g ampullary mass or stricture is not excluded. Correlation with contrast-enhanced MRI/MRCP may be of benefit. 3. Prior cholecystectomy. Reported By:
[2017-09-25] MEDS: DEMEROL INJ IVP PRN ×3 (11:55→20:31)
[2017-09-25 14:42] LABS: BILIRUBIN,URINE NEGATIVE (NEGATIVE); BLOOD/HEMOGLOBIN,URINE 1+ (NEGATIVE); GLUCOSE, URINE NEGATIVE (NEGATIVE); KETONES,URINE 1+ (NEGATIVE); LEUKOCYTE ESTERASE ,URINE 2+ (NEGATIVE); NITRITES,URINE NEGATIVE (NEGATIVE); PH,URINE 6.5 (5.0 - 8.0); PROTEIN,URINE 1+ (NEGATIVE); UROBILINOGEN,URINE 2+ (NORMAL)
[2017-09-25 14:55] LABS: APPEARANCE,URINE CLEAR (CLEAR); COLOR,URINE AMBER (YELLOW)
[2017-09-25 14:56] LABS: AMORPHOUS SEDIMENT,UR 1+ /HPF (NEGATIVE); BACTERIA,URINE TRACE /HPF (NEGATIVE); RBC,URINE 0-2 /HPF (NONE SEEN); SQUAMOUS EPITHELIAL CELL,UR MODERATE /HPF (NEGATIVE)
[2017-09-25 14:57] LABS: RENAL EPITHELIAL CELLS,URINE RARE /HPF (NEGATIVE)
[2017-09-25] MEDS ORDERED: POTASSIUM CHL 40 MEQ/NS 0.45% 500 ML IV PRN (20:12)
[2017-09-25] MEDS ORDERED: POTASSIUM CHL 60 MEQ/NS 0.45% 500 ML IV PRN (20:12)
[2017-09-25] MEDS: NICOTINE PATCH TD SCH (20:30)
[2017-09-25] MEDS: MAGNESIUM SULFATE 1 GRAM/100 mL PREMIX 1 GM/100 ML BAG IV PRN ×2 (20:47→21:54)
[2017-09-25] MEDS: AMBIEN PO PRN (21:15)
[2017-09-25] MEDS: K-RIDER 10 MEQ/NS 100 ML 10 MEQ/100 ML BAG IV PRN ×2 (22:49→23:44)
[2017-09-26] MEDS: K-RIDER 10 MEQ/NS 100 ML 10 MEQ/100 ML BAG IV PRN ×2 (00:50→01:57)
[2017-09-26] MEDS: DEMEROL INJ IVP PRN ×5 (01:08→19:25)
[2017-09-26] MEDS: NS + KCL 20 MEQ/L 1,000 ML IV SCH ×2 (03:47→19:25)
[2017-09-26 05:32] LABS: BASOPHILS # (AUTO) 0.1 X10^3/uL (0.0-0.1); BASOPHILS % (AUTO) 1.3 % (0.2-1.0); EOSINOPHILS # (AUTO) 0.4 x10^3/uL (0.0-0.2); HEMATOCRIT 34.1 % (36.0-47.0); HEMOGLOBIN 11.6 g/dL (12.0-16.0); LYMPHOCYTES # (AUTO) 1.1 X10^3/uL (1.3-2.9); LYMPHOCYTES % (AUTO) 18.9 % (21.0-51.0); MEAN CORPUSCULAR HEMOGLOBIN 33.3 pg (27.0-34.0); MEAN CORPUSCULAR HGB CONC 34.2 g/dL (33.0-35.0); MEAN CORPUSCULAR VOLUME 97.6 fL (80.0-100.0); MEAN PLATELET VOLUME 8.6 fL (7.4-11.0); MONOCYTES # (AUTO) 0.5 x10^3/uL (0.3-0.8); MONOCYTES % (AUTO) 9.1 % (0.0-13.0); NEUTROPHILS # (AUTO) 3.8 x10^3/uL (2.2-4.8); NEUTROPHILS % (AUTO) 63.7 % (42.0-75.0); PLATELET COUNT 327 X10^3/uL (150.0-450.0); RED BLOOD COUNT 3.49 X10^6/uL (3.5-5.4); RED CELL DISTRIBUTION WIDTH 12.6 % (11.6-16.5); WHITE BLOOD COUNT 5.9 X10^3/uL (3.6-10.0)
[2017-09-26 05:55] LABS: ALANINE AMINOTRANSFERASE 130 Units/L (12-78); ALKALINE PHOSPHATASE 199 Units/L (46-116); AMYLASE 221 Units/L (25-115); ASPARTATE AMINO TRANSFERASE 103 Units/L (15-37); BLOOD UREA NITROGEN 4 mg/dL (7-18); CALCIUM 8.1 mg/dL (8.5-10.1); CARBON DIOXIDE 22.3 mmol/L (21-32); CHLORIDE 105 mmol/L (98-107); COR CA(FOR HYPOALB) 8.9 mg/dL (8.5-10.1); CREATININE 0.54 mg/dL (0.55-1.02); MAGNESIUM 1.5 mg/dL (1.7-2.9); SODIUM 136 mmol/L (136-145); TOTAL PROTEIN 6.6 g/dL (6.4-8.2); eGFR NON BLACK RACES > 60 (>60)
[2017-09-26 06:34] LABS: LIPASE 2774 Units/L (73-393)
[2017-09-26] MEDS: NICOTINE PATCH TD SCH (09:09)
[2017-09-26] MEDS: CHECK PATCH XX SCH ×2 (09:16→20:24)
[2017-09-26] MEDS: MAGNESIUM SULFATE 1 GRAM/100 mL PREMIX 1 GM/100 ML BAG IV PRN ×2 (10:26→12:36)
[2017-09-26] MEDS ORDERED: DEMEROL INJ IVP ONE (12:23)
--- NOTE | 2017-09-26 16:51 | MRI ---
MRI OF THE ABDOMEN WITHOUT IV CONTRAST Clinical indication: Bile duct dilation Procedure: Multiplanar multi sequence MRI of the abdomen were obtained without the administration of intravenous contrast according to standard departmental protocol. Comparisons: CT 09/25/2017 Findings: The sensitivity for focal lesion detection within the solid abdominal viscera is diminished without t he use of IV contrast. No significant iron or fat deposition in the liver or spleen. Inflammation can be seen surrounding th e head of pancreas. Liver and spleen are normal in appearance. No focal lesions. Gallbladder absent. Common bile duct lorie sures up to 1.6 cm and tapers to the level just prior to the ampulla. The main pancreatic measures 7 mm. Overall decreased intrinsic T1 signal within the pancreas. Adrenal glands are normal. Kidneys dem onstrate normal cortical medullary differentiation. No hydronephrosis. Visualized bowel is unremarkab le. No suspicious lymph nodes. Impression: 1. Findings of acute pancreatitis involving the pancreatic head. 2. Dilation of the common bile duct and main pancreatic duct. Exclusion of small pancreatic head mass or ampullary mass cannot be performed in the absence of intravenous contrast. Additionally the acute inflammation also obscures this region. Would recommend contrast-enhanced MRI versus CT pancreas pro tocol after patient has been treated an acute symptoms have resolved clinically. Reported By:
--- NOTE | 2017-09-26 18:05 | DR.H&P ---
H&P - History & Physical for Day of: H&P Date: 09/25/17 - Chief Complaint Chief Complaint: ABDOMINAL PAIN, NV - History of Present Illness History of Present Illness: 56 WF ER ADMISSION WITH CO ABDOMINAL PAIN WITH N/V. PT STATES SHE HAS HX OF PANCREATITIS AND HASNT EATEN IN SEVERAL DAYS THINKING IT WOULD IMPROVE. PT ADMITS TO HX OF ETOH USE, HASNT HAD ALCOHOL IN 1-2 MOS PER PT. PT STATES SHE HAD GALLBLADDER REMOVED. PT HAD ELEVATED LFT'S FINDINGS CONSISTENT WITH PANCREATITIS ON CT. PT ADMITTED FOR EVALUATION AND TREATMENT OF PANCREATITIS - Past Medical History Past Medical History: Asthma, Liver Disease Additional Medical History: PANCREATITIS - Past Surgical History Surgical History: Cholecystectomy, Other - Family History Family Medical History: Diabetes Mellitus, Cancer - Social History Does patient currently use any type of tobacco product: Yes Have you used tobacco products in the last 12 months: Yes Type of Tobacco Use: Cigarettes How many years tobacco product used: 31 Does any household member use tobacco: Yes Alcohol Use: None Drug Use: Prescription Drugs - Medications Home Medications: morphine Allergy (Verified 09/25/17 08:56) Sulfa (Sulfonamide Antibiotics) [SULFA] Allergy (Verified 09/25/17 08:56) CONTINUE taking the following medications omeprazole magnesium [Prilosec OTC] 1 tab PO DAILY 09/25/17 [History] - Review of Systems Constitutional: Chills, Weakness Eyes: No Symptoms Reported ENT: No Symptoms Reported Respiratory: No Symptoms Reported Cardiovascular: No Symptoms Reported Gastrointestinal: Nausea, Vomiting, Abdominal Pain Genitourinary: No Symptoms Reported Skin: No Symptoms Reported Neurological: No Symptoms Reported - Physical Exam Vital Signs: Temperature 97.7 F Pulse Rate [Left Brachial] 78 Pulse Rate 115 Respiratory Rate 22 Blood Pressure [Left Arm] 162/81 Blood Pressure [Right Arm] 149/83 Blood Pressure 176/101 O2 Sat by Pulse Oximetry 96 Oriented: Normal Eyes: Normal Ear: Normal Nose: Normal Throat: Normal Respiratory: RLL Diminished, LLL Diminished Cardiovascular: Normal : Normal Auscultation: Bowel Sounds: Normal Tenderness: Diffuse Skin: Decreased Turgur Psychiatric: Anxiety Affect: Anxious Speech Pattern: Clear, Appropriate - Assessment/Plan (1) Acute pancreatitis Qualifiers: Pancreatitis type: biliary Acute pancreatitis complication: unspecified Qualified Code(s): K85.10 - Biliary acute pancreatitis without necrosis or infection Status: Acute Plan: NPO, IV HYDRATION, PAIN AND NAUSEA CONTROL. MRCP Q AM. VERIFY HOME MEDS. REPEAT AM LABS (2) Nausea & vomiting Status: Acute - Allergies Allergies/Adverse Reactions: Allergies Allergy/AdvReac Type Severity Reaction Status Date / Time morphine Allergy Verified 09/25/17 08:56 Sulfa (Sulfonamide Allergy Verified 09/25/17 08:56 Antibiotics) [SULFA]
--- NOTE | 2017-09-26 18:06 | PCM.PROG ---
Progress Note - Progress Note for Day of Date: 09/26/17 - Subjective Subjective: 56 WF ER ADMISSION ON 09/25 WITH ACUTE PANCREATITIS. PT CURRENTLY NPO FOR MRCP, PT CO CONTINUED PAIN. PT RECEIVING IV DEMEROL, IV HYDRATION, REPEAT AM LABS - Past Medical Family Social History Past Med/Fam/Surg Hx: No changes since H&P Allergies: Allergies morphine Allergy (Verified 09/25/17 08:56) Sulfa (Sulfonamide Antibiotics) [SULFA] Allergy (Verified 09/25/17 08:56) - Review of Systems ROS: No change since H&P - Vital Signs and I&O's Vital Signs: Temperature 97.7 F Pulse Rate [Left Brachial] 78 Pulse Rate 115 Respiratory Rate 22 Blood Pressure [Left Arm] 162/81 Blood Pressure [Right Arm] 149/83 Blood Pressure 176/101 O2 Sat by Pulse Oximetry 96 Intake and Output: Intake & Output 09/24/17 09/25/17 09/26/17 09/27/17 11:59 11:59 11:59 11:59 Intake Total 2500 / 2500 Balance 2500 / 2500 - Physical Exam Oriented: Normal Eyes: Normal Ear: Normal Nose: Normal Throat: Normal Cardiovascular: Normal : Normal Auscultation: Bowel Sounds: Normal Tenderness: Diffuse Skin: Decreased Turgur Psychiatric: Anxiety Affect: Anxious Speech Pattern: Clear, Appropriate - Laboratory and Diagnostics Result Diagrams: 09/26/17 04:10 09/26/17 04:10 Labs: Laboratory WBC 5.9 X10^3/uL (3.6-10.0) 09/26/17 04:10 RBC 3.49 X10^6/uL (3.5-5.4) L 09/26/17 04:10 Hgb 11.6 g/dL (12.0-16.0) L D 09/26/17 04:10 Hct 34.1 % (36.0-47.0) L 09/26/17 04:10 MCV 97.6 fL (80.0-100.0) 09/26/17 04:10 MCH 33.3 pg (27.0-34.0) 09/26/17 04:10 MCHC 34.2 g/dL (33.0-35.0) 09/26/17 04:10 RDW 12.6 % (11.6-16.5) 09/26/17 04:10 Plt Count 327 X10^3/uL (150.0-450.0) 09/26/17 04:10 MPV 8.6 fL (7.4-11.0) 09/26/17 04:10 Neut % (Auto) 63.7 % (42.0-75.0) 09/26/17 04:10 Lymph % (Auto) 18.9 % (21.0-51.0) L 09/26/17 04:10 [place] % (Auto) 9.1 % (0.0-13.0) 09/26/17 04:10 Eos % (Auto) 7.0 % (0.9-2.9) H 09/26/17 04:10 Baso % (Auto) 1.3 % (0.2-1.0) H 09/26/17 04:10 Neut # (Auto) 3.8 x10^3/uL (2.2-4.8) 09/26/17 04:10 Lymph # (Auto) 1.1 X10^3/uL (1.3-2.9) L 09/26/17 04:10 [place] # (Auto) 0.5 x10^3/uL (0.3-0.8) 09/26/17 04:10 Eos # (Auto) 0.4 x10^3/uL (0.0-0.2) H 09/26/17 04:10 Baso # (Auto) 0.1 X10^3/uL (0.0-0.1) 09/26/17 04:10 Absolute Nucleated RBC 0.2 /100WBC 09/26/17 04:10 Sodium 136 mmol/L (136-145) 09/26/17 04:10 Corrected Sodium TNP 09/26/17 04:10 Potassium 4.3 mmol/L (3.5-5.1) 09/26/17 04:10 Chloride 105 mmol/L (98-107) 09/26/17 04:10 Carbon Dioxide 22.3 mmol/L (21-32) 09/26/17 04:10 BUN 4 mg/dL (7-18) L 09/26/17 04:10 Creatinine 0.54 mg/dL (0.55-1.02) L 09/26/17 04:10 Est GFR (MDRD) Af Amer > 60 (>60) 09/26/17 04:10 Est GFR (MDRD) Non-Af > 60 (>60) 09/26/17 04:10 Glucose 84 mg/dL (65-99) 09/26/17 04:10 Calcium 8.1 mg/dL (8.5-10.1) L 09/26/17 04:10 Corrected Calcium 8.9 mg/dL (8.5-10.1) 09/26/17 04:10 Magnesium 1.5 mg/dL (1.7-2.9) L 09/26/17 04:10 Total Bilirubin 1.20 mg/dL (0.2-1.0) H 09/26/17 04:10 AST 103 Units/L (15-37) H 09/26/17 04:10 ALT 130 Units/L (12-78) H 09/26/17 04:10 Alkaline Phosphatase 199 Units/L (46-116) H 09/26/17 04:10 Total Protein 6.6 g/dL (6.4-8.2) 09/26/17 04:10 Albumin 3.0 g/dL (3.4-5.0) L 09/26/17 04:10 Globulin 3.6 g/dL (2.5-4.5) 09/26/17 04:10 Albumin/Globulin Ratio 0.8 Ratio (1.1-2.1) L 09/26/17 04:10 Amylase 221 Units/L (25-115) H 09/26/17 04:10 Lipase 2774 Units/L (73-393) H 09/26/17 04:10 Specimen Type Clean catch urine 09/25/17 14:35 Urine Color Candice (YELLOW) 09/25/17 14:35 Urine Appearance Clear (CLEAR) 09/25/17 14:35 Urine pH 6.5 (5.0 - 8.0) 09/25/17 14:35 Ur Specific [place] 1.010 (1.000-1.030) 09/25/17 14:35 Urine Protein 1+ (NEGATIVE) 09/25/17 14:35 Urine Glucose (UA) Negative (NEGATIVE) 09/25/17 14:35 Urine Ketones 1+ (NEGATIVE) 09/25/17 14:35 Urine Occult Blood 1+ (NEGATIVE) 09/25/17 14:35 Urine Nitrite Negative (NEGATIVE) 09/25/17 14:35 Urine Bilirubin Negative (NEGATIVE) 09/25/17 14:35 Urine Urobilinogen 2+ (NORMAL) 09/25/17 14:35 Ur Leukocyte Esterase 2+ (NEGATIVE) 09/25/17 14:35 Urine RBC 0-2 /HPF (NONE SEEN) 09/25/17 14:35 Urine WBC 0-2 /HPF (NONE SEEN) 09/25/17 14:35 Ur Squamous Epith Cells Moderate /HPF (NEGATIVE) 09/25/17 14:35 Ur Renal Epithelial Cell Rare /HPF (NEGATIVE) 09/25/17 14:35 Amorphous Sediment 1+ /HPF (NEGATIVE) 09/25/17 14:35 Urine Bacteria Trace /HPF (NEGATIVE) 09/25/17 14:35 Ur Culture Indicated? No/not indicated 09/25/17 14:35 - Plan (1) Acute pancreatitis Status: Acute Qualifiers: Pancreatitis type: biliary Acute pancreatitis complication: unspecified Qualified Code(s): K85.10 - Biliary acute pancreatitis without necrosis or infection Plan: NPO, IV HYDRATION, PAIN AND NAUSEA CONTROL. MRCP TODAY. REPEAT AM LABS (2) Nausea & vomiting Status: Acute
[2017-09-26] MEDS: AMBIEN PO PRN (20:24)
[2017-09-27] MEDS: DEMEROL INJ IVP PRN ×3 (02:02→10:01)
[2017-09-27] MEDS: NS + KCL 20 MEQ/L 1,000 ML IV SCH ×3 (03:45→19:23)
[2017-09-27 04:14] VITALS: BMI 24.7
[2017-09-27 06:11] LABS: BASOPHILS # (AUTO) 0.1 X10^3/uL (0.0-0.1); EOSINOPHILS # (AUTO) 0.3 x10^3/uL (0.0-0.2); HEMATOCRIT 35.3 % (36.0-47.0); LYMPHOCYTES # (AUTO) 1.2 X10^3/uL (1.3-2.9); LYMPHOCYTES % (AUTO) 18.6 % (21.0-51.0); MEAN CORPUSCULAR HEMOGLOBIN 33.6 pg (27.0-34.0); MEAN CORPUSCULAR VOLUME 98.8 fL (80.0-100.0); MEAN PLATELET VOLUME 8.7 fL (7.4-11.0); MONOCYTES # (AUTO) 0.4 x10^3/uL (0.3-0.8); MONOCYTES % (AUTO) 6.7 % (0.0-13.0); NEUTROPHILS # (AUTO) 4.4 x10^3/uL (2.2-4.8); NEUTROPHILS % (AUTO) 68.7 % (42.0-75.0); PLATELET COUNT 317 X10^3/uL (150.0-450.0); RED BLOOD COUNT 3.57 X10^6/uL (3.5-5.4); RED CELL DISTRIBUTION WIDTH 12.2 % (11.6-16.5); WHITE BLOOD COUNT 6.5 X10^3/uL (3.6-10.0)
[2017-09-27 06:21] LABS: ALANINE AMINOTRANSFERASE 89 Units/L (12-78); ALKALINE PHOSPHATASE 184 Units/L (46-116); AMYLASE 158 Units/L (25-115); ASPARTATE AMINO TRANSFERASE 53 Units/L (15-37); BLOOD UREA NITROGEN 3 mg/dL (7-18); CALCIUM 8.8 mg/dL (8.5-10.1); CARBON DIOXIDE 19.4 mmol/L (21-32); CHLORIDE 103 mmol/L (98-107); COR CA(FOR HYPOALB) 9.6 mg/dL (8.5-10.1); CREATININE 0.51 mg/dL (0.55-1.02); MAGNESIUM 1.5 mg/dL (1.7-2.9); SODIUM 134 mmol/L (136-145); TOTAL PROTEIN 6.8 g/dL (6.4-8.2); eGFR NON BLACK RACES > 60 (>60)
[2017-09-27] MEDS: MAGNESIUM SULFATE 1 GRAM/100 mL PREMIX 1 GM/100 ML BAG IV PRN ×2 (08:15→10:03)
[2017-09-27] MEDS: NICOTINE PATCH TD SCH (08:15)
[2017-09-27] MEDS: CHECK PATCH XX SCH ×2 (08:15→21:39)
--- NOTE | 2017-09-27 13:43 | PCM.PROG ---
Progress Note - Progress Note for Day of Date: 09/27/17 - Subjective Subjective: 56 WF ER ADMISSION ON 09/25 WITH ACUTE PANCREATITIS. PT CURRENTLY NPO , MRCP NEGATIVE FOR OBSTRUCTIVE STONE, RECOMMEND ADDITIONAL IMAGES AFTER RESOLUTION OF AP, PT CO CONTINUED PAIN. PT RECEIVING IV NARCOTICS CONTROL, IV HYDRATION, REPEAT AM LABS - Past Medical Family Social History Past Med/Fam/Surg Hx: No changes since H&P Allergies: Allergies morphine Allergy (Verified 09/25/17 08:56) Sulfa (Sulfonamide Antibiotics) [SULFA] Allergy (Verified 09/25/17 08:56) - Review of Systems ROS: No change since H&P - Vital Signs and I&O's Vital Signs: Temperature 97.6 F Pulse Rate [Left Brachial] 87 Pulse Rate 115 Respiratory Rate 18 Blood Pressure [Left Arm] 155/77 Blood Pressure [Right Arm] 149/83 Blood Pressure 176/101 O2 Sat by Pulse Oximetry 98 Intake and Output: Intake & Output 09/25/17 09/26/17 09/27/17 09/28/17 11:59 11:59 11:59 11:59 Intake Total 2500 / 2500 1999 Balance 2500 / 2500 1999 - Physical Exam Oriented: Normal Eyes: Normal Ear: Normal Nose: Normal Throat: Normal Respiratory: Diminished (MILD) Cardiovascular: Normal : Normal Auscultation: Bowel Sounds: Normal Tenderness: Diffuse Skin: Decreased Turgur Psychiatric: Anxiety Affect: Anxious Speech Pattern: Clear, Appropriate - Laboratory and Diagnostics Result Diagrams: 09/27/17 04:51 09/27/17 04:51 Labs: Laboratory WBC 6.5 X10^3/uL (3.6-10.0) 09/27/17 04:51 RBC 3.57 X10^6/uL (3.5-5.4) 09/27/17 04:51 Hgb 12.0 g/dL (12.0-16.0) 09/27/17 04:51 Hct 35.3 % (36.0-47.0) L 09/27/17 04:51 MCV 98.8 fL (80.0-100.0) 09/27/17 04:51 MCH 33.6 pg (27.0-34.0) 09/27/17 04:51 MCHC 34.0 g/dL (33.0-35.0) 09/27/17 04:51 RDW 12.2 % (11.6-16.5) 09/27/17 04:51 Plt Count 317 X10^3/uL (150.0-450.0) 09/27/17 04:51 MPV 8.7 fL (7.4-11.0) 09/27/17 04:51 Neut % (Auto) 68.7 % (42.0-75.0) 09/27/17 04:51 Lymph % (Auto) 18.6 % (21.0-51.0) L 09/27/17 04:51 [place] % (Auto) 6.7 % (0.0-13.0) 09/27/17 04:51 Eos % (Auto) 5.0 % (0.9-2.9) H 09/27/17 04:51 Baso % (Auto) 1.0 % (0.2-1.0) 09/27/17 04:51 Neut # (Auto) 4.4 x10^3/uL (2.2-4.8) 09/27/17 04:51 Lymph # (Auto) 1.2 X10^3/uL (1.3-2.9) L 09/27/17 04:51 [place] # (Auto) 0.4 x10^3/uL (0.3-0.8) 09/27/17 04:51 Eos # (Auto) 0.3 x10^3/uL (0.0-0.2) H 09/27/17 04:51 Baso # (Auto) 0.1 X10^3/uL (0.0-0.1) 09/27/17 04:51 Absolute Nucleated RBC 0.0 /100WBC 09/27/17 04:51 Sodium 134 mmol/L (136-145) L 09/27/17 04:51 Corrected Sodium TNP 09/27/17 04:51 Potassium 4.7 mmol/L (3.5-5.1) 09/27/17 04:51 Chloride 103 mmol/L (98-107) 09/27/17 04:51 Carbon Dioxide 19.4 mmol/L (21-32) L 09/27/17 04:51 BUN 3 mg/dL (7-18) L 09/27/17 04:51 Creatinine 0.51 mg/dL (0.55-1.02) L 09/27/17 04:51 Est GFR (MDRD) Af Amer > 60 (>60) 09/27/17 04:51 Est GFR (MDRD) Non-Af > 60 (>60) 09/27/17 04:51 Glucose 66 mg/dL (65-99) 09/27/17 04:51 Calcium 8.8 mg/dL (8.5-10.1) 09/27/17 04:51 Corrected Calcium 9.6 mg/dL (8.5-10.1) 09/27/17 04:51 Magnesium 1.5 mg/dL (1.7-2.9) L 09/27/17 04:51 Total Bilirubin 0.80 mg/dL (0.2-1.0) 09/27/17 04:51 AST 53 Units/L (15-37) H 09/27/17 04:51 ALT 89 Units/L (12-78) H 09/27/17 04:51 Alkaline Phosphatase 184 Units/L (46-116) H 09/27/17 04:51 Total Protein 6.8 g/dL (6.4-8.2) 09/27/17 04:51 Albumin 3.0 g/dL (3.4-5.0) L 09/27/17 04:51 Globulin 3.8 g/dL (2.5-4.5) 09/27/17 04:51 Albumin/Globulin Ratio 0.8 Ratio (1.1-2.1) L 09/27/17 04:51 Amylase 158 Units/L (25-115) H 09/27/17 04:51 Lipase > 1500 Units/L (73-393) H 09/27/17 04:51 Specimen Type Clean catch urine 09/25/17 14:35 Urine Color Candice (YELLOW) 09/25/17 14:35 Urine Appearance Clear (CLEAR) 09/25/17 14:35 Urine pH 6.5 (5.0 - 8.0) 09/25/17 14:35 Ur Specific [place] 1.010 (1.000-1.030) 09/25/17 14:35 Urine Protein 1+ (NEGATIVE) 09/25/17 14:35 Urine Glucose (UA) Negative (NEGATIVE) 09/25/17 14:35 Urine Ketones 1+ (NEGATIVE) 09/25/17 14:35 Urine Occult Blood 1+ (NEGATIVE) 09/25/17 14:35 Urine Nitrite Negative (NEGATIVE) 09/25/17 14:35 Urine Bilirubin Negative (NEGATIVE) 09/25/17 14:35 Urine Urobilinogen 2+ (NORMAL) 09/25/17 14:35 Ur Leukocyte Esterase 2+ (NEGATIVE) 09/25/17 14:35 Urine RBC 0-2 /HPF (NONE SEEN) 09/25/17 14:35 Urine WBC 0-2 /HPF (NONE SEEN) 09/25/17 14:35 Ur Squamous Epith Cells Moderate /HPF (NEGATIVE) 09/25/17 14:35 Ur Renal Epithelial Cell Rare /HPF (NEGATIVE) 09/25/17 14:35 Amorphous Sediment 1+ /HPF (NEGATIVE) 09/25/17 14:35 Urine Bacteria Trace /HPF (NEGATIVE) 09/25/17 14:35 Ur Culture Indicated? No/not indicated 09/25/17 14:35 - Plan (1) Acute pancreatitis Status: Acute Qualifiers: Pancreatitis type: biliary Acute pancreatitis complication: unspecified Qualified Code(s): K85.10 - Biliary acute pancreatitis without necrosis or infection Plan: NPO, IV HYDRATION, PAIN AND NAUSEA CONTROL. MRCP ON 09/26. REPEAT AM LABS (2) Nausea & vomiting Status: Acute (3) Asthma Status: Acute Plan: RESP CONSULT
[2017-09-27] MEDS ORDERED: DUONEB 0.5 MG/3 MG ONE (13:52)
[2017-09-27] MEDS ORDERED: PROVENTIL NEB TX 0.083% 2.5MG/ 3ML ONE (13:55)
[2017-09-27] MEDS: PROVENTIL NEB TX 0.083% 2.5MG/ 3ML NEB PRN (14:00)
[2017-09-27] MEDS: DILAUDID INJ IVP PRN ×3 (14:53→23:54)
[2017-09-27] MEDS: ZOFRAN INJ 4 MG VIAL IVP PRN ×2 (14:53→20:32)
[2017-09-27] MEDS ORDERED: BENADRYL INJ 50 MG VIAL IVP ONE (17:16)
[2017-09-27] MEDS: AMBIEN PO PRN (20:31)
[2017-09-28] MEDS: NS + KCL 20 MEQ/L 1,000 ML IV SCH ×3 (04:16→18:38)
[2017-09-28] MEDS: ZOFRAN INJ 4 MG VIAL IVP PRN (04:21)
[2017-09-28] MEDS: DILAUDID INJ IVP PRN ×2 (04:21→08:06)
[2017-09-28 06:04] LABS: BASOPHILS # (AUTO) 0.1 X10^3/uL (0.0-0.1); BASOPHILS % (AUTO) 0.9 % (0.2-1.0); EOSINOPHILS # (AUTO) 0.5 x10^3/uL (0.0-0.2); EOSINOPHILS % (AUTO) 7.8 % (0.9-2.9); HEMATOCRIT 33.3 % (36.0-47.0); HEMOGLOBIN 11.4 g/dL (12.0-16.0); LYMPHOCYTES # (AUTO) 1.3 X10^3/uL (1.3-2.9); LYMPHOCYTES % (AUTO) 21.1 % (21.0-51.0); MEAN CORPUSCULAR HEMOGLOBIN 33.8 pg (27.0-34.0); MEAN CORPUSCULAR HGB CONC 34.2 g/dL (33.0-35.0); MEAN CORPUSCULAR VOLUME 98.6 fL (80.0-100.0); MEAN PLATELET VOLUME 8.3 fL (7.4-11.0); MONOCYTES # (AUTO) 0.5 x10^3/uL (0.3-0.8); NEUTROPHILS # (AUTO) 3.6 x10^3/uL (2.2-4.8); NEUTROPHILS % (AUTO) 61.2 % (42.0-75.0); PLATELET COUNT 317 X10^3/uL (150.0-450.0); RED BLOOD COUNT 3.37 X10^6/uL (3.5-5.4); RED CELL DISTRIBUTION WIDTH 12.3 % (11.6-16.5)
[2017-09-28 06:12] LABS: ALANINE AMINOTRANSFERASE 69 Units/L (12-78); ALBUMIN 3.1 g/dL (3.4-5.0); ALKALINE PHOSPHATASE 169 Units/L (46-116); AMYLASE 94 Units/L (25-115); ASPARTATE AMINO TRANSFERASE 35 Units/L (15-37); BLOOD UREA NITROGEN 2 mg/dL (7-18); CALCIUM 8.8 mg/dL (8.5-10.1); CARBON DIOXIDE 22.3 mmol/L (21-32); CHLORIDE 104 mmol/L (98-107); COR CA(FOR HYPOALB) 9.5 mg/dL (8.5-10.1); CREATININE 0.57 mg/dL (0.55-1.02); LIPASE 1075 Units/L (73-393); MAGNESIUM 1.4 mg/dL (1.7-2.9); SODIUM 135 mmol/L (136-145); eGFR NON BLACK RACES > 60 (>60)
[2017-09-28] MEDS: MAGNESIUM SULFATE 1 GRAM/100 mL PREMIX 1 GM/100 ML BAG IV PRN (06:28)
--- NOTE | 2017-09-28 07:02 | RAD ---
Chest portable Indication , asthma respiratory distress Findings: The heart and mediastinum are normal. There is no hyperinflation noted. Mild bronchial wall thickening is seen at the gauri. Changes of reactive airways are considered. There is no focal infilt rate effusion or pneumothorax. The skeleton is negative. There is no congestive failure. Impression: 1. Mildly coarse perihilar markings and bronchial wall changes correlate with reactive ai rways disease or asthma. Reported By:
[2017-09-28] MEDS: CHECK PATCH XX SCH ×2 (08:05→21:27)
[2017-09-28] MEDS: NICOTINE PATCH TD SCH (08:07)
[2017-09-28 09:29] LABS: LIPASE 2052 Units/L (73-393)
[2017-09-28] MEDS ORDERED: DILAUDID INJ IVP PRN (10:00)
[2017-09-28] MEDS: ROXICODONE TAB 5 MG PO PRN ×3 (11:59→20:19)
--- NOTE | 2017-09-28 13:46 | PCM.PROG ---
Progress Note - Progress Note for Day of Date of Exam: 09/28/17 - Subjective Subjective: 56 WF ER ADMISSION ON 09/25 WITH ACUTE PANCREATITIS. PT CURRENTLY NPO , MRCP NEGATIVE FOR OBSTRUCTIVE STONE, RECOMMEND ADDITIONAL IMAGES AFTER RESOLUTION OF AP, PT CO IMPROVING PAIN AND NAUSEA, ASKING TO ADVANCE TO CLEAR LIQUIDS. PT RECEIVING IV NARCOTICS CONTROL, IV HYDRATION, REPEAT AM LABS - Past Medical Family Social History Past Med/Fam/Surg Hx: No changes since H&P Allergies: Allergies morphine Allergy (Verified 09/25/17 08:56) Sulfa (Sulfonamide Antibiotics) [SULFA] Allergy (Verified 09/25/17 08:56) - Review of Systems ROS: No change since H&P - Vital Signs and I&O's Vital Signs: Temperature 98.3 F Pulse Rate [Left Brachial] 90 Pulse Rate 79 Respiratory Rate 20 Blood Pressure [Left Arm] 159/75 Blood Pressure [Right Arm] 149/83 Blood Pressure 176/101 O2 Sat by Pulse Oximetry 97 Intake and Output: Intake & Output 09/26/17 09/27/17 09/28/17 09/29/17 11:59 11:59 11:59 11:59 Intake Total 2500 / 2500 1999 1240 / 1240 Balance 2500 / 2500 1999 1240 / 1240 - Physical Exam Oriented: Normal Eyes: Normal Ear: Normal Nose: Normal Throat: Normal Respiratory: Diminished (MILD) Cardiovascular: Normal : Normal Auscultation: Bowel Sounds: Normal Tenderness: Diffuse Skin: Decreased Turgur Psychiatric: Anxiety Affect: Anxious Speech Pattern: Clear, Appropriate - Laboratory and Diagnostics Result Diagrams: 09/28/17 05:30 09/28/17 05:30 Labs: Laboratory WBC 6.0 X10^3/uL (3.6-10.0) 09/28/17 05:30 RBC 3.37 X10^6/uL (3.5-5.4) L 09/28/17 05:30 Hgb 11.4 g/dL (12.0-16.0) L 09/28/17 05:30 Hct 33.3 % (36.0-47.0) L 09/28/17 05:30 MCV 98.6 fL (80.0-100.0) 09/28/17 05:30 MCH 33.8 pg (27.0-34.0) 09/28/17 05:30 MCHC 34.2 g/dL (33.0-35.0) 09/28/17 05:30 RDW 12.3 % (11.6-16.5) 09/28/17 05:30 Plt Count 317 X10^3/uL (150.0-450.0) 09/28/17 05:30 MPV 8.3 fL (7.4-11.0) 09/28/17 05:30 Neut % (Auto) 61.2 % (42.0-75.0) 09/28/17 05:30 Lymph % (Auto) 21.1 % (21.0-51.0) 09/28/17 05:30 [place] % (Auto) 9.0 % (0.0-13.0) 09/28/17 05:30 Eos % (Auto) 7.8 % (0.9-2.9) H 09/28/17 05:30 Baso % (Auto) 0.9 % (0.2-1.0) 09/28/17 05:30 Neut # (Auto) 3.6 x10^3/uL (2.2-4.8) 09/28/17 05:30 Lymph # (Auto) 1.3 X10^3/uL (1.3-2.9) 09/28/17 05:30 [place] # (Auto) 0.5 x10^3/uL (0.3-0.8) 09/28/17 05:30 Eos # (Auto) 0.5 x10^3/uL (0.0-0.2) H 09/28/17 05:30 Baso # (Auto) 0.1 X10^3/uL (0.0-0.1) 09/28/17 05:30 Absolute Nucleated RBC 0.0 /100WBC 09/28/17 05:30 Sodium 135 mmol/L (136-145) L 09/28/17 05:30 Corrected Sodium TNP 09/28/17 05:30 Potassium 4.5 mmol/L (3.5-5.1) 09/28/17 05:30 Chloride 104 mmol/L (98-107) 09/28/17 05:30 Carbon Dioxide 22.3 mmol/L (21-32) 09/28/17 05:30 BUN 2 mg/dL (7-18) L 09/28/17 05:30 Creatinine 0.57 mg/dL (0.55-1.02) 09/28/17 05:30 Est GFR (MDRD) Af Amer > 60 (>60) 09/28/17 05:30 Est GFR (MDRD) Non-Af > 60 (>60) 09/28/17 05:30 Glucose 90 mg/dL (65-99) 09/28/17 05:30 Calcium 8.8 mg/dL (8.5-10.1) 09/28/17 05:30 Corrected Calcium 9.5 mg/dL (8.5-10.1) 09/28/17 05:30 Magnesium 1.4 mg/dL (1.7-2.9) L 09/28/17 05:30 Total Bilirubin 0.70 mg/dL (0.2-1.0) 09/28/17 05:30 AST 35 Units/L (15-37) 09/28/17 05:30 ALT 69 Units/L (12-78) 09/28/17 05:30 Alkaline Phosphatase 169 Units/L (46-116) H 09/28/17 05:30 Total Protein 7.0 g/dL (6.4-8.2) 09/28/17 05:30 Albumin 3.1 g/dL (3.4-5.0) L 09/28/17 05:30 Globulin 3.9 g/dL (2.5-4.5) 09/28/17 05:30 Albumin/Globulin Ratio 0.8 Ratio (1.1-2.1) L 09/28/17 05:30 Amylase 94 Units/L (25-115) 09/28/17 05:30 Lipase 1075 Units/L (73-393) H 09/28/17 05:30 Specimen Type Clean catch urine 09/25/17 14:35 Urine Color [place]ice (YELLOW) 09/25/17 14:35 Urine Appearance Clear (CLEAR) 09/25/17 14:35 Urine pH 6.5 (5.0 - 8.0) 09/25/17 14:35 Ur Specific [place] 1.010 (1.000-1.030) 09/25/17 14:35 Urine Protein 1+ (NEGATIVE) 09/25/17 14:35 Urine Glucose (UA) Negative (NEGATIVE) 09/25/17 14:35 Urine Ketones 1+ (NEGATIVE) 09/25/17 14:35 Urine Occult Blood 1+ (NEGATIVE) 09/25/17 14:35 Urine Nitrite Negative (NEGATIVE) 09/25/17 14:35 Urine Bilirubin Negative (NEGATIVE) 09/25/17 14:35 Urine Urobilinogen 2+ (NORMAL) 09/25/17 14:35 Ur Leukocyte Esterase 2+ (NEGATIVE) 09/25/17 14:35 Urine RBC 0-2 /HPF (NONE SEEN) 09/25/17 14:35 Urine WBC 0-2 /HPF (NONE SEEN) 09/25/17 14:35 Ur Squamous Epith Cells Moderate /HPF (NEGATIVE) 09/25/17 14:35 Ur Renal Epithelial Cell Rare /HPF (NEGATIVE) 09/25/17 14:35 Amorphous Sediment 1+ /HPF (NEGATIVE) 09/25/17 14:35 Urine Bacteria Trace /HPF (NEGATIVE) 09/25/17 14:35 Ur Culture Indicated? No/not indicated 09/25/17 14:35 - Plan (1) Acute pancreatitis Status: Acute Qualifiers: Pancreatitis type: biliary Acute pancreatitis complication: unspecified Qualified Code(s): K85.10 - Biliary acute pancreatitis without necrosis or infection Plan: NPO, IV HYDRATION, PAIN AND NAUSEA CONTROL. MRCP ON 09/26. REPEAT AM LABS (2) Nausea & vomiting Status: Acute (3) Asthma Status: Acute Plan: RESP CONSULT
[2017-09-28] MEDS ORDERED: DUONEB 0.5 MG/3 MG ONE (20:14)
[2017-09-28] MEDS: PROVENTIL NEB TX 0.083% 2.5MG/ 3ML NEB PRN (20:45)
[2017-09-28] MEDS: AMBIEN PO PRN (21:26)
[2017-09-29] MEDS: NS + KCL 20 MEQ/L 1,000 ML IV SCH ×4 (02:30→20:24)
[2017-09-29] MEDS: ROXICODONE TAB 5 MG PO PRN ×4 (05:00→20:26)
[2017-09-29 06:35] LABS: BASOPHILS # (AUTO) 0.1 X10^3/uL (0.0-0.1); BASOPHILS % (AUTO) 1.1 % (0.2-1.0); EOSINOPHILS # (AUTO) 0.5 x10^3/uL (0.0-0.2); EOSINOPHILS % (AUTO) 8.9 % (0.9-2.9); HEMOGLOBIN 11.3 g/dL (12.0-16.0); LYMPHOCYTES % (AUTO) 18.6 % (21.0-51.0); MEAN CORPUSCULAR HEMOGLOBIN 33.6 pg (27.0-34.0); MEAN CORPUSCULAR HGB CONC 34.4 g/dL (33.0-35.0); MEAN CORPUSCULAR VOLUME 97.8 fL (80.0-100.0); MEAN PLATELET VOLUME 8.4 fL (7.4-11.0); MONOCYTES # (AUTO) 0.6 x10^3/uL (0.3-0.8); MONOCYTES % (AUTO) 10.9 % (0.0-13.0); NEUTROPHILS # (AUTO) 3.2 x10^3/uL (2.2-4.8); NEUTROPHILS % (AUTO) 60.5 % (42.0-75.0); PLATELET COUNT 288 X10^3/uL (150.0-450.0); RED BLOOD COUNT 3.38 X10^6/uL (3.5-5.4); RED CELL DISTRIBUTION WIDTH 12.1 % (11.6-16.5); WHITE BLOOD COUNT 5.3 X10^3/uL (3.6-10.0)
[2017-09-29 07:01] LABS: ALANINE AMINOTRANSFERASE 54 Units/L (12-78); ALKALINE PHOSPHATASE 150 Units/L (46-116); AMYLASE 70 Units/L (25-115); ASPARTATE AMINO TRANSFERASE 30 Units/L (15-37); BLOOD UREA NITROGEN 2 mg/dL (7-18); CALCIUM 8.8 mg/dL (8.5-10.1); CARBON DIOXIDE 23.4 mmol/L (21-32); CHLORIDE 105 mmol/L (98-107); COR CA(FOR HYPOALB) 9.6 mg/dL (8.5-10.1); CREATININE 0.53 mg/dL (0.55-1.02); LIPASE 576 Units/L (73-393); SODIUM 137 mmol/L (136-145); TOTAL PROTEIN 6.6 g/dL (6.4-8.2); eGFR NON BLACK RACES > 60 (>60)
[2017-09-29] MEDS: NICOTINE PATCH TD SCH (08:41)
[2017-09-29] MEDS: CHECK PATCH XX SCH ×2 (08:41→21:00)
--- NOTE | 2017-09-29 13:52 | PCM.PROG ---
Progress Note - Progress Note for Day of Date of Exam: 09/29/17 - Subjective Subjective: 56 WF ER ADMISSION ON 09/25 WITH ACUTE PANCREATITIS. PT CURRENTLY NPO , MRCP NEGATIVE FOR OBSTRUCTIVE STONE, RECOMMEND ADDITIONAL IMAGES AFTER RESOLUTION OF AP, PT CO IMPROVING PAIN AND NAUSEA, ASKING TO ADVANCE TO CLEAR LIQUIDS. CT ABDOMEN AND PELVIS Q AM WITH CONTRAST. PT CO IMPROVING PAIN, DECREASE IV PAIN CONTROL, IV HYDRATION, REPEAT AM LABS - Past Medical Family Social History Past Med/Fam/Surg Hx: No changes since H&P Allergies: Allergies morphine Allergy (Verified 09/25/17 08:56) Sulfa (Sulfonamide Antibiotics) [SULFA] Allergy (Verified 09/25/17 08:56) - Review of Systems ROS: No change since H&P - Vital Signs and I&O's Vital Signs: Temperature 98.5 F Pulse Rate [Right Brachial] 82 Pulse Rate [Left Brachial] 99 Pulse Rate 76 Respiratory Rate 18 Blood Pressure [Left Arm] 129/95 Blood Pressure [Right Arm] 141/70 Blood Pressure 176/101 O2 Sat by Pulse Oximetry 95 Intake and Output: Intake & Output 09/27/17 09/28/17 09/29/17 09/30/17 11:59 11:59 11:59 11:59 Intake Total 1999 1240 / 1240 1959 Balance 1999 1240 / 1240 1959 - Physical Exam Oriented: Normal Eyes: Normal Ear: Normal Nose: Normal Throat: Normal Respiratory: Diminished (MILD) Cardiovascular: Normal : Normal Auscultation: Bowel Sounds: Normal Tenderness: Diffuse Skin: Decreased Turgur Psychiatric: Anxiety Affect: Anxious Speech Pattern: Clear, Appropriate - Laboratory and Diagnostics Result Diagrams: 09/29/17 06:05 09/29/17 06:05 Labs: Laboratory WBC 5.3 X10^3/uL (3.6-10.0) 09/29/17 06:05 RBC 3.38 X10^6/uL (3.5-5.4) L 09/29/17 06:05 Hgb 11.3 g/dL (12.0-16.0) L 09/29/17 06:05 Hct 33.0 % (36.0-47.0) L 09/29/17 06:05 MCV 97.8 fL (80.0-100.0) 09/29/17 06:05 MCH 33.6 pg (27.0-34.0) 09/29/17 06:05 MCHC 34.4 g/dL (33.0-35.0) 09/29/17 06:05 RDW 12.1 % (11.6-16.5) 09/29/17 06:05 Plt Count 288 X10^3/uL (150.0-450.0) 09/29/17 06:05 MPV 8.4 fL (7.4-11.0) 09/29/17 06:05 Neut % (Auto) 60.5 % (42.0-75.0) 09/29/17 06:05 Lymph % (Auto) 18.6 % (21.0-51.0) L 09/29/17 06:05 [place] % (Auto) 10.9 % (0.0-13.0) 09/29/17 06:05 Eos % (Auto) 8.9 % (0.9-2.9) H 09/29/17 06:05 Baso % (Auto) 1.1 % (0.2-1.0) H 09/29/17 06:05 Neut # (Auto) 3.2 x10^3/uL (2.2-4.8) 09/29/17 06:05 Lymph # (Auto) 1.0 X10^3/uL (1.3-2.9) L 09/29/17 06:05 [place] # (Auto) 0.6 x10^3/uL (0.3-0.8) 09/29/17 06:05 Eos # (Auto) 0.5 x10^3/uL (0.0-0.2) H 09/29/17 06:05 Baso # (Auto) 0.1 X10^3/uL (0.0-0.1) 09/29/17 06:05 Absolute Nucleated RBC 0.1 /100WBC 09/29/17 06:05 Sodium 137 mmol/L (136-145) 09/29/17 06:05 Corrected Sodium TNP 09/29/17 06:05 Potassium 4.5 mmol/L (3.5-5.1) 09/29/17 06:05 Chloride 105 mmol/L (98-107) 09/29/17 06:05 Carbon Dioxide 23.4 mmol/L (21-32) 09/29/17 06:05 BUN 2 mg/dL (7-18) L 09/29/17 06:05 Creatinine 0.53 mg/dL (0.55-1.02) L 09/29/17 06:05 Est GFR (MDRD) Af Amer > 60 (>60) 09/29/17 06:05 Est GFR (MDRD) Non-Af > 60 (>60) 09/29/17 06:05 Glucose 101 mg/dL (65-99) H 09/29/17 06:05 Calcium 8.8 mg/dL (8.5-10.1) 09/29/17 06:05 Corrected Calcium 9.6 mg/dL (8.5-10.1) 09/29/17 06:05 Magnesium 1.4 mg/dL (1.7-2.9) L 09/28/17 05:30 Total Bilirubin 0.50 mg/dL (0.2-1.0) 09/29/17 06:05 AST 30 Units/L (15-37) 09/29/17 06:05 ALT 54 Units/L (12-78) 09/29/17 06:05 Alkaline Phosphatase 150 Units/L (46-116) H 09/29/17 06:05 Total Protein 6.6 g/dL (6.4-8.2) 09/29/17 06:05 Albumin 3.0 g/dL (3.4-5.0) L 09/29/17 06:05 Globulin 3.6 g/dL (2.5-4.5) 09/29/17 06:05 Albumin/Globulin Ratio 0.8 Ratio (1.1-2.1) L 09/29/17 06:05 Amylase 70 Units/L (25-115) 09/29/17 06:05 Lipase 576 Units/L (73-393) H 09/29/17 06:05 Specimen Type Clean catch urine 09/25/17 14:35 Urine Color [place] (YELLOW) 09/25/17 14:35 Urine Appearance Clear (CLEAR) 09/25/17 14:35 Urine pH 6.5 (5.0 - 8.0) 09/25/17 14:35 Ur Specific [place] 1.010 (1.000-1.030) 09/25/17 14:35 Urine Protein 1+ (NEGATIVE) 09/25/17 14:35 Urine Glucose (UA) Negative (NEGATIVE) 09/25/17 14:35 Urine Ketones 1+ (NEGATIVE) 09/25/17 14:35 Urine Occult Blood 1+ (NEGATIVE) 09/25/17 14:35 Urine Nitrite Negative (NEGATIVE) 09/25/17 14:35 Urine Bilirubin Negative (NEGATIVE) 09/25/17 14:35 Urine Urobilinogen 2+ (NORMAL) 09/25/17 14:35 Ur Leukocyte Esterase 2+ (NEGATIVE) 09/25/17 14:35 Urine RBC 0-2 /HPF (NONE SEEN) 09/25/17 14:35 Urine WBC 0-2 /HPF (NONE SEEN) 09/25/17 14:35 Ur Squamous Epith Cells Moderate /HPF (NEGATIVE) 09/25/17 14:35 Ur Renal Epithelial Cell Rare /HPF (NEGATIVE) 09/25/17 14:35 Amorphous Sediment 1+ /HPF (NEGATIVE) 09/25/17 14:35 Urine Bacteria Trace /HPF (NEGATIVE) 09/25/17 14:35 Ur Culture Indicated? No/not indicated 09/25/17 14:35 - Plan (1) Acute pancreatitis Status: Acute Qualifiers: Pancreatitis type: biliary Acute pancreatitis complication: unspecified Qualified Code(s): K85.10 - Biliary acute pancreatitis without necrosis or infection Plan: NPO, IV HYDRATION, PAIN AND NAUSEA CONTROL. MRCP ON 09/26. REPEAT AM LABS (2) Nausea & vomiting Status: Acute (3) Asthma Status: Acute Plan: RESP CONSULT
--- NOTE | 2017-09-29 14:56 | RAD ---
HISTORY: Abdominal pain Study: KUB Comparison: CT scan of the abdomen and pelvis done 09/25/2017 Findings: There are surgical clips from cholecystectomy. Moderate stool is present involving the colon. No stephon l obstruction is seen. There is no evidence of opaque stone. Vascular calcifications are present with in the true pelvis. Multilevel lumbar spondylosis is appreciated. IMPRESSION: No acute abdominal abnormality is seen. Reported By:
[2017-09-29] MEDS: AMBIEN PO PRN (20:26)
[2017-09-29] MEDS: ZOFRAN INJ 4 MG VIAL IVP PRN (20:26)
[2017-09-30] MEDS: ROXICODONE TAB 5 MG PO PRN ×3 (03:00→12:42)
[2017-09-30] MEDS: NS + KCL 20 MEQ/L 1,000 ML IV SCH ×2 (04:51→11:58)
[2017-09-30 06:29] LABS: BASOPHILS # (AUTO) 0.2 X10^3/uL (0.0-0.1); BASOPHILS % (AUTO) 2.4 % (0.2-1.0); EOSINOPHILS # (AUTO) 0.6 x10^3/uL (0.0-0.2); EOSINOPHILS % (AUTO) 9.6 % (0.9-2.9); HEMATOCRIT 34.9 % (36.0-47.0); LYMPHOCYTES # (AUTO) 1.2 X10^3/uL (1.3-2.9); LYMPHOCYTES % (AUTO) 18.4 % (21.0-51.0); MEAN CORPUSCULAR HEMOGLOBIN 33.7 pg (27.0-34.0); MEAN CORPUSCULAR HGB CONC 34.4 g/dL (33.0-35.0); MEAN CORPUSCULAR VOLUME 97.9 fL (80.0-100.0); MEAN PLATELET VOLUME 8.5 fL (7.4-11.0); MONOCYTES # (AUTO) 0.6 x10^3/uL (0.3-0.8); MONOCYTES % (AUTO) 8.8 % (0.0-13.0); NEUTROPHILS # (AUTO) 3.9 x10^3/uL (2.2-4.8); NEUTROPHILS % (AUTO) 60.8 % (42.0-75.0); PLATELET COUNT 302 X10^3/uL (150.0-450.0); RED BLOOD COUNT 3.57 X10^6/uL (3.5-5.4); RED CELL DISTRIBUTION WIDTH 12.2 % (11.6-16.5); WHITE BLOOD COUNT 6.4 X10^3/uL (3.6-10.0)
[2017-09-30 06:59] LABS: ALANINE AMINOTRANSFERASE 48 Units/L (12-78); ALBUMIN 3.2 g/dL (3.4-5.0); ALKALINE PHOSPHATASE 151 Units/L (46-116); AMYLASE 40 Units/L (25-115); ASPARTATE AMINO TRANSFERASE 25 Units/L (15-37); BLOOD UREA NITROGEN 2 mg/dL (7-18); CALCIUM 8.9 mg/dL (8.5-10.1); CHLORIDE 105 mmol/L (98-107); COR CA(FOR HYPOALB) 9.5 mg/dL (8.5-10.1); CREATININE 0.62 mg/dL (0.55-1.02); LIPASE 256 Units/L (73-393); SODIUM 139 mmol/L (136-145); TOTAL PROTEIN 7.2 g/dL (6.4-8.2); eGFR NON BLACK RACES > 60 (>60)
[2017-09-30] MEDS: CHECK PATCH XX SCH (08:27)
[2017-09-30] MEDS: NICOTINE PATCH TD SCH (08:27)
[2017-09-30] MEDS ORDERED: NS 100 ML IV 100 ML IV ONE (10:07)
--- NOTE | 2017-09-30 11:19 | CT ---
History: Abdominal pain and pancreatitis Study: CT of abdomen and pelvis with IV and oral contrast. 100 mL Omnipaque 350 IV contrast. Sagittal and coronal reformations were provided. Comparison: September 25 Findings: The visualized lung bases are clear. The liver and spleen and kidneys and adrenal glands re main unremarkable. The gallbladder surgically absent. There is unchanged intrahepatic biliary dilatat ion. The common hepatic duct measures 1.9 cm diameter. The common bile duct does taper distally witho ut stone demonstrated. There is unchanged dilatation of the pancreatic duct up to 8 mm diameter. No p seudocyst is demonstrated. The uncinate process is decreased in size since the prior exam and there i s improvement in adjacent stranding of fat planes. No discrete pancreatic mass is demonstrated. There is no ascites or adenopathy or bowel distention demonstrated. The uterus is unremarkable. The u rinary bladder is unremarkable. I do not visualize an abnormal appendix. No significant bony abnormal ity is demonstrated. Impression: 1. Improving findings of pancreatitis of the uncinate process and head of the pancreas 2. Persistent dilatation of pancreatic duct in biliary tree status post cholecystectomy Reported By:
[2017-09-30 12:12] VITALS: BP 150/76
[2017-09-30] MEDS ORDERED: DULCOLAX SUPPOSITORY 10 MG RECTAL ONE (12:35)
[2017-09-30] MEDS: MILK OF MAGNESIA PO SCH ×2 (12:41→12:50)
[2017-09-30] MEDS ORDERED: COLACE CAP 100 MG PO SCH (21:00)
== END 2017-09-30 12:55 | disposition home or self-care (01) | DRG 440 ==
LOC: ER 08:55 → MED/SURG 12:09 → OBS 09-28 12:53 → MED/SURG 09-28 12:53
PROVIDERS: ADMIT Internal Medicine; ATTEND Internal Medicine
DX: K86.1 Other chronic pancreatitis; F10.21 Alcohol dependence, in remission; R11.2 Nausea with vomiting, unspecified; R10.84 Generalized abdominal pain; K85.10 Biliary acute pancreatitis without necrosis or infection; J45.998 Other asthma; E86.0 Dehydration
CPT/HCPCS: 36415; 71010; 71045; 74000; 74018; 74176; 74177; 74181; 80053; 81001; 82150; 83690; 83735; 85025; 94640; 94669; 94760; 96365; 96374; 96375; 99283; 99284; A4222; S0028; J1170; J1200; J2175; J2405; J3475; J3480; J7030; J7050; J7613; J7620

== ENCOUNTER 2018-03-24 18:24 | Inpatient (IN) ==
[2018-03-25] MEDS ORDERED: PROVENTIL NEB TX 0.083% 2.5MG/ 3ML NEB PRN ×2 (08:03→13:00)
[2018-03-25] MEDS: TAB-A-VITE PO SCH (10:37)
[2018-03-25] MEDS: ZESTRIL TAB 5 MG PO SCH (10:37)
[2018-03-25] MEDS: FOLIC ACID TAB 1 MG PO SCH (10:38)
[2018-03-25] MEDS: COREG TAB 12.5 MG PO SCH ×2 (10:38→20:32)
[2018-03-25] MEDS: VITAMIN B-1 PO SCH (10:38)
[2018-03-25] MEDS: CHRONULAC PO SCH ×2 (10:38→20:32)
[2018-03-25 11:15] LABS: BASOPHILS # (AUTO) 0.1 X10^3/uL (0.0-0.1); BASOPHILS % (AUTO) 1.4 % (0.2-1.0); EOSINOPHILS # (AUTO) 0.1 x10^3/uL (0.0-0.2); EOSINOPHILS % (AUTO) 1.3 % (0.9-2.9); HEMATOCRIT 32.8 % (36.0-47.0); HEMOGLOBIN 10.7 g/dL (12.0-16.0); LYMPHOCYTES % (AUTO) 18.7 % (21.0-51.0); MEAN CORPUSCULAR HEMOGLOBIN 30.6 pg (27.0-34.0); MEAN CORPUSCULAR HGB CONC 32.7 g/dL (33.0-35.0); MEAN CORPUSCULAR VOLUME 93.6 fL (80.0-100.0); MONOCYTES # (AUTO) 0.5 x10^3/uL (0.3-0.8); NEUTROPHILS # (AUTO) 3.5 x10^3/uL (2.2-4.8); NEUTROPHILS % (AUTO) 69.6 % (42.0-75.0); PLATELET COUNT 357 X10^3/uL (150.0-450.0); WHITE BLOOD COUNT 5.1 X10^3/uL (3.6-10.0)
[2018-03-25 11:31] LABS: ALANINE AMINOTRANSFERASE 41 Units/L (12-78); ALBUMIN 2.7 g/dL (3.4-5.0); ALKALINE PHOSPHATASE 105 Units/L (46-116); ASPARTATE AMINO TRANSFERASE 23 Units/L (15-37); BLOOD UREA NITROGEN 4 mg/dL (7-18); CALCIUM 8.3 mg/dL (8.5-10.1); CARBON DIOXIDE 25.3 mmol/L (21-32); CHLORIDE 106 mmol/L (98-107); COR CA(FOR HYPOALB) 9.3 mg/dL (8.5-10.1); CREATININE 0.73 mg/dL (0.55-1.02); SODIUM 141 mmol/L (136-145); TOTAL PROTEIN 6.7 g/dL (6.4-8.2); eGFR NON BLACK RACES > 60 (>60)
[2018-03-25 11:38] LABS: AMMONIA 10 umol/L (11-32)
--- NOTE | 2018-03-25 11:54 | RAD ---
Examination: AP chest History: COPD asthma Comparison 03/06/2018, 02/15/2018 Findings: The heart is again noted to be enlarged. Increased interstitial infiltrates are present, especially when compared to February,. The pleural costophrenic sulci are blunted by small fluid collections. There is a localized infiltrate in the right upper lobe. Impression: Increasing bilateral infiltrates and pleural fluid, especially when compared to 02/15/2018. The findings are consistent with pneumonia although some element of superimposed CHF may be present. Reported By:
--- NOTE | 2018-03-25 13:13 | DR.H&P ---
H&P - History & Physical for Day of: H&P Date: 03/25/18 - Chief Complaint Chief Complaint: 57 WF BACK TRANSFER FROM [facility] AFTER EXTENDED STAY DUE TO ACUTE ON CHRONIC RESPIRATORY FAILURE REQUIRING MECHANICAL VENTILATION. PLAN TO EVALUATE FOR POSSIBLE REHAB THERAPY DUE TO DIFFUSE WEAKNESS. PT STATES SHE FEELS OK, WOULD LIKE TO GO HOME IF SHE'S BETTER. PT HAS CO SEVERE LEFT BREAST EDEMA WITH TENDNERNESS, NO REDNESS OR D/C, NO OPEN WOUND. PT PREVIOUSLY HAS A LEFT IJ CENTRAL LINE. - Past Medical History Past Medical History: Anxiety, Asthma, COPD, Hypertension, Liver Disease Additional Medical History: PANCREATITIS - Past Surgical History Surgical History: Cholecystectomy, Other - Family History Family Medical History: Diabetes Mellitus, Cancer - Social History Does patient currently use any type of tobacco product: No Have you used tobacco products in the last 12 months: No Type of Tobacco Use: None Does any household member use tobacco: No Alcohol Use: None Drug Use: None - Medications Home Medications: morphine Allergy (Verified 02/15/18 18:17) Sulfa (Sulfonamide Antibiotics) [SULFA] Allergy (Verified 02/15/18 18:17) CONTINUE taking the following medications albuterol sulfate 3 ml INHALATION Q6H PRN 03/25/18 [History] carvedilol [Coreg] 12.5 mg PO BID 03/25/18 [History] folic acid 1 mg PO DAILY 03/25/18 [History] lactulose 30 ml PO Q12H 03/25/18 [History] lisinopril 2.5 mg PO DAILY 03/25/18 [History] multivitamin 1 tab PO DAILY 03/25/18 [History] quetiapine 25 mg PO DAILY 03/25/18 [History] quetiapine 100 mg PO HS 03/25/18 [History] thiamine HCl (vitamin B1) 100 mg PO DAILY 03/25/18 [History] - Review of Systems Constitutional: Weakness Eyes: No Symptoms Reported ENT: No Symptoms Reported Respiratory: Cough, SOB with Excertion (MILD) Cardiovascular: No Symptoms Reported Gastrointestinal: No Symptoms Reported Genitourinary: No Symptoms Reported Musculoskeletal: Leg Pain (BILATER LE WEAKNESS) Skin: No Symptoms Reported Neurological: Weakness - Physical Exam Vital Signs: Temperature 98.3 F Pulse Rate [Left Brachial] 90 Respiratory Rate 18 Blood Pressure [Left Arm] 130/74 Blood Pressure [Right Arm] 122/60 Blood Pressure 115/58 O2 Sat by Pulse Oximetry 100 Oriented: Normal Eyes: Normal Ear: Normal Nose: Normal Throat: Normal Respiratory: RLL Diminished, LLL Diminished Cardiovascular: Normal : Normal Auscultation: Bowel Sounds: Normal Tenderness: Normal Skin: Tender, Other (DIFFUSE PITTING EDEMA TO LEFT BREAST) Musculoskeletal: Normal Psychiatric: Anxiety, Agitation Affect: Anxious Speech Pattern: Clear, Appropriate - Assessment/Plan (1) COPD (chronic obstructive pulmonary disease) Status: Acute (2) Weakness Status: Acute (3) Anxiety Status: Acute (4) Breast mass, left Status: Acute Plan: D DIMER, ELEVATE, PAIN CONTROL. US LEFT UUE AND BREAST R/O SUBCLAVIAN DVT (5) Breast pain, left Status: Acute - Allergies Allergies/Adverse Reactions: Allergies Allergy/AdvReac Type Severity Reaction Status Date / Time morphine Allergy Verified 02/15/18 18:17 Sulfa (Sulfonamide Allergy Verified 02/15/18 18:17 Antibiotics) [SULFA]
[2018-03-25] MEDS: PROVENTIL NEB TX 0.083% 2.5MG/ 3ML NEB SCH ×3 (13:23→21:26)
[2018-03-25 14:23] LABS: ABG ALLEN TEST POS; ABG BASE EXCESS 1.1 mmol/L (-2.0-2.0); ABG HCO3 25.1 mmol/L (22-26)
[2018-03-25 15:11] VITALS: BMI 28.1
--- NOTE | 2018-03-25 17:15 | VAS ---
Exam: Left upper extremity venous ultrasound History: 57-year-old female with left arm edema. Comparison: None Findings: Ultrasound evaluation of the venous system of the left upper extremity was performed from the level of the left subclavian vein down to the distal radial and ulnar veins. The venous system is widely patent with good flow and compressibility noted throughout its course. No sign of intraluminal thrombus. Specifically, there is no evidence of subclavian vein thrombosis. Impression: No venous thrombosis is identified in the left upper extremity. Specifically, no evidence of subclavian vein thrombosis is seen on this exam Reported By:
[2018-03-25 17:17] LABS: BILIRUBIN,URINE NEGATIVE (NEGATIVE); BLOOD/HEMOGLOBIN,URINE 1+ (NEGATIVE); GLUCOSE, URINE NEGATIVE (NEGATIVE); KETONES,URINE 1+ (NEGATIVE); LEUKOCYTE ESTERASE ,URINE 2+ (NEGATIVE); NITRITES,URINE NEGATIVE (NEGATIVE); PH,URINE 6.5 (5.0 - 8.0); PROTEIN,URINE NEGATIVE (NEGATIVE); UROBILINOGEN,URINE 2+ (NORMAL)
--- NOTE | 2018-03-25 17:20 | US ---
Exam: Left breast ultrasound History: 57-year-old female with left breast edema Comparison: None Findings: Ultrasound evaluation of the left breast demonstrates diffuse edema throughout the entire breast. However no mass or discrete fluid collection is seen to suggest the presence of a breast abscess. Impression: Diffuse edematous changes are seen throughout the entire left breast. No sonographic evidence of breast abscess however. Reported By:
[2018-03-25 17:24] LABS: APPEARANCE,URINE HAZY (CLEAR); COLOR,URINE DARK YELLOW (YELLOW)
[2018-03-25 17:25] LABS: BACTERIA,URINE 1+ /HPF (NEGATIVE); SQUAMOUS EPITHELIAL CELL,UR FEW /HPF (NEGATIVE); YEAST,URINE FEW /HPF (NEGATIVE)
[2018-03-25] MEDS ORDERED: BUTT CREAM (COMPOUND) TOP PRN (18:53)
[2018-03-25] MEDS: SEROquel TAB 100 MG PO SCH (20:31)
[2018-03-25] MEDS ORDERED: MAALOX or MYLANTA PO PRN (20:48)
[2018-03-25] MEDS: AMBIEN PO PRN (21:12)
[2018-03-26] MEDS: PROVENTIL NEB TX 0.083% 2.5MG/ 3ML NEB SCH ×6 (01:47→21:12)
[2018-03-26 06:04] LABS: ALANINE AMINOTRANSFERASE 28 Units/L (12-78); ALBUMIN 2.1 g/dL (3.4-5.0); ALKALINE PHOSPHATASE 81 Units/L (46-116); ASPARTATE AMINO TRANSFERASE 18 Units/L (15-37); BLOOD UREA NITROGEN 3 mg/dL (7-18); CALCIUM 7.5 mg/dL (8.5-10.1); CARBON DIOXIDE 24.3 mmol/L (21-32); CHLORIDE 108 mmol/L (98-107); CREATININE 0.54 mg/dL (0.55-1.02); SODIUM 140 mmol/L (136-145); TOTAL PROTEIN 5.3 g/dL (6.4-8.2); eGFR NON BLACK RACES > 60 (>60)
[2018-03-26 06:10] LABS: BASOPHILS # (AUTO) 0.1 X10^3/uL (0.0-0.1); BASOPHILS % (AUTO) 1.1 % (0.2-1.0); EOSINOPHILS # (AUTO) 0.1 x10^3/uL (0.0-0.2); EOSINOPHILS % (AUTO) 2.2 % (0.9-2.9); HEMATOCRIT 27.6 % (36.0-47.0); LYMPHOCYTES # (AUTO) 0.9 X10^3/uL (1.3-2.9); LYMPHOCYTES % (AUTO) 19.4 % (21.0-51.0); MEAN CORPUSCULAR HEMOGLOBIN 30.8 pg (27.0-34.0); MEAN CORPUSCULAR HGB CONC 32.7 g/dL (33.0-35.0); MEAN CORPUSCULAR VOLUME 94.1 fL (80.0-100.0); MEAN PLATELET VOLUME 8.9 fL (7.4-11.0); MONOCYTES # (AUTO) 0.5 x10^3/uL (0.3-0.8); MONOCYTES % (AUTO) 11.3 % (0.0-13.0); NEUTROPHILS # (AUTO) 3.1 x10^3/uL (2.2-4.8); PLATELET COUNT 293 X10^3/uL (150.0-450.0); RED BLOOD COUNT 2.94 X10^6/uL (3.5-5.4); RED CELL DISTRIBUTION WIDTH 17.8 % (11.6-16.5); WHITE BLOOD COUNT 4.8 X10^3/uL (3.6-10.0)
[2018-03-26 07:18] LABS: AMMONIA 19 umol/L (11-32)
[2018-03-26] MEDS ORDERED: KLOR-CON PO PRN (07:44)
[2018-03-26] MEDS ORDERED: POTASSIUM CHL 40 MEQ/NS 0.45% 500 ML IV PRN (07:44)
[2018-03-26] MEDS ORDERED: K-DUR TAB 20 MEQ PO PRN (07:44)
[2018-03-26] MEDS ORDERED: POTASSIUM CHLORIDE LIQ 20 MEQ UDC PO PRN (07:44)
[2018-03-26] MEDS ORDERED: K-RIDER 10 MEQ/NS 100 ML 10 MEQ/100 ML BAG IV PRN (07:44)
[2018-03-26] MEDS ORDERED: MICRO K EXTEN CAP 10 MEQ PO PRN (07:44)
[2018-03-26] MEDS ORDERED: POTASSIUM CHL 60 MEQ/NS 0.45% 500 ML IV PRN (07:44)
[2018-03-26] MEDS: COREG TAB 12.5 MG PO SCH ×2 (08:05→20:08)
[2018-03-26] MEDS: FOLIC ACID TAB 1 MG PO SCH (08:05)
[2018-03-26] MEDS: ZESTRIL TAB 5 MG PO SCH (08:05)
[2018-03-26] MEDS: TAB-A-VITE PO SCH (08:05)
[2018-03-26] MEDS: CHRONULAC PO SCH ×2 (08:06→20:09)
[2018-03-26] MEDS: VITAMIN B-1 PO SCH (08:11)
[2018-03-26] MEDS ORDERED: MAGNESIUM SULFATE 1 GRAM/100 mL PREMIX 1 GM/100 ML BAG IV PRN (09:00)
[2018-03-26] MEDS ORDERED: ZOSYN VIAL 3.375 GRAMS 3.375 G in NS 100 ML IV + SPIKE MINIBAG* 100 ML IV SCH (11:15)
[2018-03-26] MEDS ORDERED: LEVAQUIN PREMIX IV 500 MG 500 MG/100 ML BAG IV SCH (12:00)
[2018-03-26] MEDS: NYSTATIN POWDER TOP SCH ×2 (12:49→20:09)
[2018-03-26] MEDS: LEVAQUIN TAB 500 MG PO SCH (12:49)
[2018-03-26] MEDS: SEROquel TAB 100 MG PO SCH (20:08)
[2018-03-26] MEDS: AMBIEN PO PRN (20:09)
[2018-03-26] MEDS ORDERED: MAG-OX TAB PO ONE (20:45)
[2018-03-26] MEDS ORDERED: MAG-OX TAB ONE (20:46)
[2018-03-27] MEDS: PROVENTIL NEB TX 0.083% 2.5MG/ 3ML NEB SCH ×4 (01:20→12:03)
[2018-03-27 05:23] LABS: BASOPHILS # (AUTO) 0.1 X10^3/uL (0.0-0.1); BASOPHILS % (AUTO) 1.2 % (0.2-1.0); EOSINOPHILS # (AUTO) 0.1 x10^3/uL (0.0-0.2); EOSINOPHILS % (AUTO) 2.5 % (0.9-2.9); HEMATOCRIT 28.6 % (36.0-47.0); HEMOGLOBIN 9.5 g/dL (12.0-16.0); LYMPHOCYTES # (AUTO) 1.6 X10^3/uL (1.3-2.9); LYMPHOCYTES % (AUTO) 34.1 % (21.0-51.0); MEAN CORPUSCULAR HGB CONC 33.1 g/dL (33.0-35.0); MEAN CORPUSCULAR VOLUME 93.4 fL (80.0-100.0); MEAN PLATELET VOLUME 8.4 fL (7.4-11.0); MONOCYTES # (AUTO) 0.6 x10^3/uL (0.3-0.8); MONOCYTES % (AUTO) 13.7 % (0.0-13.0); NEUTROPHILS # (AUTO) 2.2 x10^3/uL (2.2-4.8); NEUTROPHILS % (AUTO) 48.5 % (42.0-75.0); PLATELET COUNT 305 X10^3/uL (150.0-450.0); RED BLOOD COUNT 3.06 X10^6/uL (3.5-5.4); RED CELL DISTRIBUTION WIDTH 17.8 % (11.6-16.5); WHITE BLOOD COUNT 4.6 X10^3/uL (3.6-10.0)
[2018-03-27 05:26] LABS: AMMONIA 23 umol/L (11-32)
[2018-03-27 05:38] LABS: ALANINE AMINOTRANSFERASE 31 Units/L (12-78); ALBUMIN 2.3 g/dL (3.4-5.0); ALKALINE PHOSPHATASE 93 Units/L (46-116); ASPARTATE AMINO TRANSFERASE 21 Units/L (15-37); BLOOD UREA NITROGEN 4 mg/dL (7-18); CALCIUM 7.8 mg/dL (8.5-10.1); CARBON DIOXIDE 23.8 mmol/L (21-32); CHLORIDE 108 mmol/L (98-107); COR CA(FOR HYPOALB) 9.2 mg/dL (8.5-10.1); CREATININE 0.65 mg/dL (0.55-1.02); MAGNESIUM 1.3 mg/dL (1.7-2.9); SODIUM 141 mmol/L (136-145); TOTAL PROTEIN 5.9 g/dL (6.4-8.2); eGFR NON BLACK RACES > 60 (>60)
[2018-03-27] MEDS: VITAMIN B-1 PO SCH (08:31)
[2018-03-27] MEDS: COREG TAB 12.5 MG PO SCH (08:32)
[2018-03-27] MEDS: CHRONULAC PO SCH (08:32)
[2018-03-27] MEDS: TAB-A-VITE PO SCH (08:32)
[2018-03-27] MEDS: FOLIC ACID TAB 1 MG PO SCH (08:32)
[2018-03-27] MEDS: ZESTRIL TAB 5 MG PO SCH (08:32)
[2018-03-27] MEDS: LEVAQUIN TAB 500 MG PO SCH (08:32)
[2018-03-27] MEDS: NYSTATIN POWDER TOP SCH (08:52)
[2018-03-27 13:14] VITALS: BP 119/68
[2018-03-27] MEDS ORDERED: MAG-OX TAB PO ONE (20:45)
== END 2018-03-27 15:10 | disposition home or self-care (01) | DRG 190 ==
LOC: MED/SURG 03-25 01:41
PROVIDERS: ADMIT Internal Medicine; ATTEND Internal Medicine
DX: I10 Essential (primary) hypertension; F41.8 Other specified anxiety disorders; R53.1 Weakness; N64.4 Mastodynia; N63.20 Unspecified lump in the left breast, unspecified quadrant; J44.1 Chronic obstructive pulmonary disease with (acute) exacerbation; R26.89 Other abnormalities of gait and mobility; J96.20 Acute and chronic respiratory failure, unspecified whether with hypoxia or hypercapnia; R60.0 Localized edema
CPT/HCPCS: 36415; 36600; 71010; 71045; 76642; 80053; 81001; 82140; 82803; 83735; 84132; 85025; 85378; 87086; 93005; 93971; 94640; 97162; 97166; 99221; J7613